=== PATIENT | female | born 1945 | race Caucasian/White ===

== ENCOUNTER 2019-04-06 09:38 | Emergency (ER) | payer BC ==
[~2019-04-06] VITALS: Ht 160 cm; Wt 59.0 kg
[2019-04-06 09:38] VITALS: BP_SYST 141
[2019-04-06] MEDS ORDERED: NACL 0.9% 1,000 ML IV ONE (09:56)
[2019-04-06 10:35] LABS: ANION GAP 9 (5-15); CALCIUM 9.6 mg/dL (8.4-11.0); CHLORIDE 103 mmol/L (98-107); CREATININE 0.98 mg/dL (0.55-1.30); GLUCOSE 74 mg/dL (70-99); SODIUM SERUM 137 mmol/L (136-145); UREA NITROGEN, BLOOD 12 mg/dL (8-21)
[2019-04-06 10:37] LABS: BASOPHILS % (AUTO) 0.8 % (0.0-2.0); EOSINOPHILS % (AUTO) 1.1 % (0.0-4.0); HEMATOCRIT 37.2 % (36-48); HEMOGLOBIN 12.5 g/dL (12.0-16.0); LYMPHOCYTES # (AUTO) 1.1 K/uL (1.0-5.5); LYMPHOCYTES % (AUTO) 31.2 % (20.5-51.5); MEAN CORPUSCULAR HEMOGLOBIN 31 pg (27-31); MEAN CORPUSCULAR HGB CONC 34 % (32-36); MEAN CORPUSCULAR VOLUME 94 fL (79.0-98.0); MONOCYTES # (AUTO) 0.2 K/uL (0.0-1.0); MONOCYTES % (AUTO) 7.1 % (1.7-9.3); NEUTROPHILS # (AUTO) 2.1 K/uL (1.8-7.7); NEUTROPHILS % (AUTO) 59.8 % (40.0-70.0); PLATELET COUNT (AUTO) 133 K/uL (130-430); RED BLOOD CELL COUNT(AUTO) 3.98 MIL/uL (4.2-6.2); RED CELL DISTRIBUTION WIDTH 12.9 % (9.0-15.0); WHITE BLOOD COUNT (AUTO) 3.5 K/uL (4.8-10.8)
[2019-04-06 10:39] LABS: ALANINE AMINOTRANSFERASE 18 U/L (12-78); ALBUMIN 3.8 g/dL (3.4-4.8); ASPARTATE AMINOTRANSFERASE 34 U/L (10-37); LIPASE 505 U/L (73-393); TOTAL BILIRUBIN 0.9 mg/dL (0.0-1.0)
[2019-04-06 10:53] LABS: BILIRUBIN,URINE NEGATIVE (NEGATIVE); BLOOD, URINE 2+ (NEGATIVE); CLARITY/URINE SL HAZY (CLEAR); COLOR,URINE YELLOW (YELLOW); GLUCOSE,URINE NEGATIVE (NEGATIVE); KETONES,URINE 1+ (NEGATIVE); LEUKOCYTE ESTERASE ,URINE 1+ (NEGATIVE); NITRITE, URINE NEGATIVE (NEGATIVE); PH,URINE 5.5 (5.0-8.0); PROTEIN URINE NEGATIVE (NEGATIVE); UROBILINOGEN,URINE 0.2 (0.2-1.0)
[2019-04-06 11:20] LABS: BACTERIA,URINE FEW /HPF (None Seen); MUCUS,URINE None Seen /LPF (None Seen); RBC,URINE 0-3 /HPF (0-3)
[2019-04-06 14:45] VITALS: BP_SYST 115
== END 2019-04-06 14:45 | disposition home or self-care (01) ==
LOC: SED 09:38
DX: K52.9 Noninfective gastroenteritis and colitis, unspecified (principal); E11.9 Type 2 diabetes mellitus without complications; Z88.0 Allergy status to penicillin; Z88.6 Allergy status to analgesic agent; Z86.79 Personal history of other diseases of the circulatory system; Z90.49 Acquired absence of other specified parts of digestive tract; Z90.89 Acquired absence of other organs
CPT/HCPCS: 36415; 80053; 81000; 83690; 85025; 87086; 93005; 96360; 99284; J7030

== ENCOUNTER 2019-12-01 15:10 | Emergency (ER) | payer BC ==
[~2019-12-01] VITALS: Ht 160 cm; Wt 47.6 kg
[2019-12-01] MEDS ORDERED: NACL 0.9% 1,000 ML IV ONE (15:22)
--- NOTE | 2019-12-01 15:30 | NUR ---
DR SALDIVAR TO ASSESS. PT CALM, ALERT AND COOPERATIVE
--- NOTE | 2019-12-01 16:00 | NUR ---
BIB EMT FROM HOME AFTER C/O DEHYDRATION AND UTI. SHE IS CALM, ALERT, RESP UNLABORED, SKIN WARM AND DRY. COMMUNICATES CLEARLY IN FULL COMPLETE SENTENCES. DENIES CP/SOB SHE DENIES ANY DYSUREA. SHE BELIEVS SHE IS DEHYDRATED HAS UTI.
[2019-12-01 16:09] VITALS: BP_SYST 126
--- NOTE | 2019-12-01 16:09 | NUR ---
PLACED IN ROOM.
[2019-12-01] MEDS ORDERED: fentaNYL CITRATE/PF 100 MCG/2 ML AMP IVP ONE (16:15)
[2019-12-01] MEDS ORDERED: ONDANSETRON HCL 4 MG/2 ML VIAL IVP ONE (16:15)
[2019-12-01 16:31] LABS: EOSINOPHILS % (AUTO) 0.1 % (0.0-4.0); HEMATOCRIT 33.1 % (36-48); HEMOGLOBIN 11.3 g/dL (12.0-16.0); LYMPHOCYTES # (AUTO) 0.4 K/uL (1.0-5.5); LYMPHOCYTES % (AUTO) 7.9 % (20.5-51.5); MEAN CORPUSCULAR HEMOGLOBIN 34 pg (27-31); MEAN CORPUSCULAR HGB CONC 34 % (32-36); MEAN CORPUSCULAR VOLUME 98 fL (79.0-98.0); MONOCYTES # (AUTO) 0.3 K/uL (0.0-1.0); MONOCYTES % (AUTO) 6.8 % (1.7-9.3); NEUTROPHILS # (AUTO) 4.2 K/uL (1.8-7.7); NEUTROPHILS % (AUTO) 84.2 % (40.0-70.0); PLATELET COUNT (AUTO) 164 K/uL (130-430); RED BLOOD CELL COUNT(AUTO) 3.37 MIL/uL (4.2-6.2); RED CELL DISTRIBUTION WIDTH 12.5 % (9.0-15.0)
[2019-12-01 16:46] LABS: PROTHROMBIN TIME 10.4 SECS (9.5-12.5)
[2019-12-01 16:55] LABS: ANION GAP 5 (5-15); CHLORIDE 98 mmol/L (98-107); GLUCOSE 87 mg/dL (70-99); POTASSIUM 3.9 mmol/L (3.5-5.1); SODIUM SERUM 132 mmol/L (136-145); UREA NITROGEN, BLOOD 8 mg/dL (8-21)
[2019-12-01 17:00] LABS: ALANINE AMINOTRANSFERASE 36 U/L (12-78); ALBUMIN 3.3 g/dL (3.4-4.8); ASPARTATE AMINOTRANSFERASE 40 U/L (10-37); LIPASE 477 U/L (73-393)
[2019-12-01 17:55] LABS: BILIRUBIN,URINE NEGATIVE (NEGATIVE); BLOOD, URINE NEGATIVE (NEGATIVE); CLARITY/URINE CLEAR (CLEAR); COLOR,URINE YELLOW (YELLOW); GLUCOSE,URINE NEGATIVE (NEGATIVE); KETONES,URINE 1+ (NEGATIVE); LEUKOCYTE ESTERASE ,URINE NEGATIVE (NEGATIVE); NITRITE, URINE NEGATIVE (NEGATIVE); PH,URINE 7.5 (5.0-8.0); PROTEIN URINE NEGATIVE (NEGATIVE); UROBILINOGEN,URINE 0.2 (0.2-1.0)
--- NOTE | 2019-12-01 18:45 | NUR ---
NO CHANGE IN MENTATION, SKIN WARM AND DRY. COMMUNICATES CLEARLY IN FULL COMPLETE SENTENCES. AWAITING INFLUENZA TEST
--- NOTE | 2019-12-01 21:39 | NUR ---
Patient given written and verbal discharge instructions and verbalizes understanding. ER MD discussed with patient the results and treatment provided. Patient in stable condition. ID arm band removed. IV catheter removed intact and dressing applied, no active bleeding. Rx of PYRIDIUM AND TYLENOL given. Patient educated on pain management and to follow up with PMD. Pain Scale 0/10. Opportunity for questions provided and answered. Medication side effect fact sheet provided.
[2019-12-01 21:40] VITALS: BP_SYST 122
== END 2019-12-01 21:39 | disposition home or self-care (01) ==
LOC: SED 15:10
DX: R30.0 Dysuria (principal); E11.9 Type 2 diabetes mellitus without complications; Z88.0 Allergy status to penicillin; Z88.5 Allergy status to narcotic agent
CPT/HCPCS: 36415; 71045; 80053; 81003; 82550; 83605; 83690; 83880; 84484; 85025; 85610; 85730; 86710; 87040; 93005; 99285; J7030

== ENCOUNTER 2020-05-20 01:28 | Observation (INO) | payer BC ==
[~2020-05-20] VITALS: Ht 167.6 cm; Wt 47.7 kg
[2020-05-20] VITALS (8 sets, daily range): BP systolic 104–133
[2020-05-20] MEDS ORDERED: NACL 0.9% 1,000 ML IV ONE ×2 (02:09→04:31)
[2020-05-20] MEDS ORDERED: ONDANSETRON HCL 4 MG/2 ML VIAL IVP ONE (02:15)
[2020-05-20] MEDS ORDERED: LISI40TA4 PO (02:24)
[2020-05-20] MEDS ORDERED: CYAN250014 PO (02:25)
[2020-05-20 02:50] LABS: BASOPHILS % (AUTO) 0.8 % (0.0-2.0); EOSINOPHILS % (AUTO) 0.9 % (0.0-4.0); HEMATOCRIT 28.9 % (36-48); HEMOGLOBIN 9.9 g/dL (12.0-16.0); LYMPHOCYTES # (AUTO) 0.8 K/uL (1.0-5.5); LYMPHOCYTES % (AUTO) 24.3 % (20.5-51.5); MEAN CORPUSCULAR HEMOGLOBIN 33 pg (27-31); MEAN CORPUSCULAR HGB CONC 34 % (32-36); MEAN CORPUSCULAR VOLUME 96 fL (79.0-98.0); MONOCYTES # (AUTO) 0.4 K/uL (0.0-1.0); MONOCYTES % (AUTO) 12.4 % (1.7-9.3); NEUTROPHILS # (AUTO) 2.1 K/uL (1.8-7.7); NEUTROPHILS % (AUTO) 61.6 % (40.0-70.0); PLATELET COUNT (AUTO) 220 K/uL (130-430); RED BLOOD CELL COUNT(AUTO) 3.03 MIL/uL (4.2-6.2); RED CELL DISTRIBUTION WIDTH 13.6 % (9.0-15.0); WHITE BLOOD COUNT (AUTO) 3.4 K/uL (4.8-10.8)
[2020-05-20 03:12] LABS: ANION GAP 3 (5-15); CALCIUM 8.3 mg/dL (8.4-11.0); CHLORIDE 91 mmol/L (98-107); CREATININE 0.61 mg/dL (0.55-1.30); GLUCOSE 88 mg/dL (70-99); POTASSIUM 4.7 mmol/L (3.5-5.1); SODIUM SERUM 123 mmol/L (136-145); UREA NITROGEN, BLOOD 15 mg/dL (8-21)
[2020-05-20 03:17] LABS: ALANINE AMINOTRANSFERASE 27 U/L (12-78); ALBUMIN 3.2 g/dL (3.4-4.8); ASPARTATE AMINOTRANSFERASE 26 U/L (10-37); LIPASE 988 U/L (73-393); TOTAL BILIRUBIN 0.4 mg/dL (0.0-1.0)
[2020-05-20 03:33] LABS: BILIRUBIN,URINE NEGATIVE (NEGATIVE); BLOOD, URINE NEGATIVE (NEGATIVE); CLARITY/URINE CLEAR (CLEAR); GLUCOSE,URINE NEGATIVE (NEGATIVE); KETONES,URINE NEGATIVE (NEGATIVE); LEUKOCYTE ESTERASE ,URINE NEGATIVE (NEGATIVE); NITRITE, URINE NEGATIVE (NEGATIVE); PH,URINE 7.5 (5.0-8.0); PROTEIN URINE NEGATIVE (NEGATIVE); UROBILINOGEN,URINE 0.2 (0.2-1.0)
[2020-05-20 03:35] LABS: COLOR,URINE STRAW (YELLOW)
[2020-05-20] MEDS ORDERED: ACETAMINOPHEN 325 MG TABLET PO PRN (07:00)
[2020-05-20] MEDS ORDERED: ONDANSETRON HCL 4 MG/2 ML VIAL IVP PRN (07:00)
[2020-05-20] MEDS: NACL 0.9% 1,000 ML IV SCH ×2 (08:55→16:25)
[2020-05-20] MEDS: lisinopriL 20 MG TABLET PO SCH (08:55)
[2020-05-20] MEDS ORDERED: DIATR MEGLU/DIATRIZ SOD 30 ML SOLUTION PO ONE ×2 (09:04→11:30)
[2020-05-20 10:43] LABS: BASOPHILS % (AUTO) 0.9 % (0.0-2.0); EOSINOPHILS % (AUTO) 0.7 % (0.0-4.0); HEMATOCRIT 28.3 % (36-48); LYMPHOCYTES % (AUTO) 22.3 % (20.5-51.5); MEAN CORPUSCULAR HEMOGLOBIN 33 pg (27-31); MEAN CORPUSCULAR HGB CONC 35 % (32-36); MEAN CORPUSCULAR VOLUME 95 fL (79.0-98.0); MONOCYTES # (AUTO) 0.5 K/uL (0.0-1.0); MONOCYTES % (AUTO) 11.3 % (1.7-9.3); NEUTROPHILS # (AUTO) 2.8 K/uL (1.8-7.7); NEUTROPHILS % (AUTO) 64.8 % (40.0-70.0); PLATELET COUNT (AUTO) 225 K/uL (130-430); RED BLOOD CELL COUNT(AUTO) 2.99 MIL/uL (4.2-6.2); RED CELL DISTRIBUTION WIDTH 13.5 % (9.0-15.0); WHITE BLOOD COUNT (AUTO) 4.3 K/uL (4.8-10.8)
[2020-05-20 10:56] LABS: TOTAL IRON BIND. CAPACITY 219 ug/dL (250-450)
[2020-05-20 10:57] LABS: CHOLESTEROL 148 mg/dL (<200); HDL CHOLESTEROL 95 mg/dL (>55); LDL CHOLESTEROL 43 mg/dL (<100); TRIGLYCERIDES 35 mg/dL (30-150)
[2020-05-20 11:03] LABS: ANION GAP 3 (5-15); CALCIUM 8.1 mg/dL (8.4-11.0); CHLORIDE 94 mmol/L (98-107); CREATININE 0.63 mg/dL (0.55-1.30); GLUCOSE 75 mg/dL (70-99); SODIUM SERUM 126 mmol/L (136-145); UREA NITROGEN, BLOOD 12 mg/dL (8-21)
[2020-05-20 11:04] LABS: ALANINE AMINOTRANSFERASE 25 U/L (12-78); ASPARTATE AMINOTRANSFERASE 23 U/L (10-37); TOTAL BILIRUBIN 0.6 mg/dL (0.0-1.0)
[2020-05-20 11:12] LABS: LIPASE 882 U/L (73-393)
[2020-05-21 01:13] VITALS: BP_SYST 116
[2020-05-21] MEDS: NACL 0.9% 1,000 ML IV SCH ×2 (02:58→12:55)
[2020-05-21 07:14] LABS: BASOPHILS % (AUTO) 1.2 % (0.0-2.0); EOSINOPHILS % (AUTO) 1.4 % (0.0-4.0); HEMATOCRIT 28.3 % (36-48); LYMPHOCYTES # (AUTO) 0.8 K/uL (1.0-5.5); LYMPHOCYTES % (AUTO) 29.2 % (20.5-51.5); MEAN CORPUSCULAR HEMOGLOBIN 34 pg (27-31); MEAN CORPUSCULAR HGB CONC 35 % (32-36); MEAN CORPUSCULAR VOLUME 95 fL (79.0-98.0); MONOCYTES # (AUTO) 0.3 K/uL (0.0-1.0); MONOCYTES % (AUTO) 11.1 % (1.7-9.3); NEUTROPHILS # (AUTO) 1.7 K/uL (1.8-7.7); NEUTROPHILS % (AUTO) 57.1 % (40.0-70.0); PLATELET COUNT (AUTO) 234 K/uL (130-430); RED BLOOD CELL COUNT(AUTO) 2.97 MIL/uL (4.2-6.2); RED CELL DISTRIBUTION WIDTH 13.7 % (9.0-15.0); WHITE BLOOD COUNT (AUTO) 2.9 K/uL (4.8-10.8)
[2020-05-21 07:26] LABS: ALANINE AMINOTRANSFERASE 25 U/L (12-78); ANION GAP 4 (5-15); ASPARTATE AMINOTRANSFERASE 25 U/L (10-37); CALCIUM 8.3 mg/dL (8.4-11.0); CHLORIDE 94 mmol/L (98-107); CREATININE 0.64 mg/dL (0.55-1.30); GLUCOSE 60 mg/dL (70-99); POTASSIUM 4.3 mmol/L (3.5-5.1); SODIUM SERUM 126 mmol/L (136-145); TOTAL BILIRUBIN 0.7 mg/dL (0.0-1.0); UREA NITROGEN, BLOOD 8 mg/dL (8-21)
[2020-05-21 07:53] VITALS: BP_SYST 117
[2020-05-21] MEDS: lisinopriL 20 MG TABLET PO SCH (08:30)
[2020-05-21 13:02] VITALS: BP_SYST 145
[2020-05-21 16:13] VITALS: BP_SYST 117
[2020-05-21 18:25] VITALS: BP_SYST 118
== END 2020-05-21 19:20 | disposition home or self-care (01) ==
LOC: SED 01:28 → SMU 04:26 → INTOOBSV 04:26 → SMU 05:06
PROVIDERS: ADMIT Internal Medicine Hospice and Palliative Medicine; ATTEND Internal Medicine Hospice and Palliative Medicine
DX: K85.90 Acute pancreatitis without necrosis or infection, unspecified (principal); K86.2 Cyst of pancreas; E87.1 Hypo-osmolality and hyponatremia; E46 Unspecified protein-calorie malnutrition; D72.819 Decreased white blood cell count, unspecified; D64.9 Anemia, unspecified; I10 Essential (primary) hypertension; E11.9 Type 2 diabetes mellitus without complications; R74.8 Abnormal levels of other serum enzymes; Z88.0 Allergy status to penicillin; Z86.011 Personal history of benign neoplasm of the brain; Z79.899 Other long term (current) drug therapy; Z90.49 Acquired absence of other specified parts of digestive tract
CPT/HCPCS: 36415; 71045; 76700-TC; 80053; 80061; 81003; 83540-TC; 83550-TC; 83690-TC; 83880; 84302-TC; 84484; 85025; 93005; 94760; 96360; 96361; 99285; G0378; J7030; Q9964; Q9967

== ENCOUNTER 2020-05-24 19:49 | Emergency (ER) | payer BC ==
[~2020-05-24] VITALS: Ht 160 cm; Wt 47.6 kg
[~2020-05-24 19:49] MED LIST: CYAN250014 PO; LISI40TA4 PO
[2020-05-24 19:52] VITALS: BP_SYST 121
[2020-05-24] MEDS ORDERED: ONDANSETRON HCL 4 MG/2 ML VIAL IVP ONE (20:15)
[2020-05-24 20:31] LABS: MONOCYTES # (AUTO) 0.4 K/uL (0.0-1.0); RED BLOOD CELL COUNT(AUTO) 3.01 MIL/uL (4.2-6.2)
[2020-05-24 20:36] LABS: BASOPHILS % (AUTO) 1.1 % (0.0-2.0); EOSINOPHILS % (AUTO) 1.2 % (0.0-4.0); HEMATOCRIT 28.5 % (36-48); HEMOGLOBIN 9.9 g/dL (12.0-16.0); LYMPHOCYTES # (AUTO) 0.9 K/uL (1.0-5.5); LYMPHOCYTES % (AUTO) 29.1 % (20.5-51.5); MEAN CORPUSCULAR HEMOGLOBIN 33 pg (27-31); MEAN CORPUSCULAR HGB CONC 35 % (32-36); MEAN CORPUSCULAR VOLUME 95 fL (79.0-98.0); MONOCYTES % (AUTO) 12.1 % (1.7-9.3); NEUTROPHILS # (AUTO) 1.8 K/uL (1.8-7.7); NEUTROPHILS % (AUTO) 56.5 % (40.0-70.0); PLATELET COUNT (AUTO) 219 K/uL (130-430); RED CELL DISTRIBUTION WIDTH 13.5 % (9.0-15.0); WHITE BLOOD COUNT (AUTO) 3.2 K/uL (4.8-10.8)
[2020-05-24 20:54] LABS: ANION GAP 3 (5-15); CALCIUM 8.4 mg/dL (8.4-11.0); CHLORIDE 92 mmol/L (98-107); CREATININE 0.68 mg/dL (0.55-1.30); GLUCOSE 86 mg/dL (70-99); POTASSIUM 4.7 mmol/L (3.5-5.1); SODIUM SERUM 124 mmol/L (136-145); UREA NITROGEN, BLOOD 14 mg/dL (8-21)
[2020-05-24 21:00] LABS: ALANINE AMINOTRANSFERASE 21 U/L (12-78); ALBUMIN 3.5 g/dL (3.4-4.8); ASPARTATE AMINOTRANSFERASE 20 U/L (10-37); LIPASE 1022 U/L (73-393); TOTAL BILIRUBIN 0.4 mg/dL (0.0-1.0)
[2020-05-24 21:12] LABS: BILIRUBIN,URINE NEGATIVE (NEGATIVE); BLOOD, URINE NEGATIVE (NEGATIVE); CLARITY/URINE CLEAR (CLEAR); COLOR,URINE YELLOW (YELLOW); GLUCOSE,URINE NEGATIVE (NEGATIVE); KETONES,URINE NEGATIVE (NEGATIVE); LEUKOCYTE ESTERASE ,URINE NEGATIVE (NEGATIVE); NITRITE, URINE NEGATIVE (NEGATIVE); PH,URINE 6.5 (5.0-8.0); PROTEIN URINE NEGATIVE (NEGATIVE); UROBILINOGEN,URINE 0.2 (0.2-1.0)
[2020-05-24 22:36] VITALS: BP_SYST 121
== END 2020-05-24 22:36 | disposition home or self-care (01) ==
LOC: SED 19:49
DX: R11.0 Nausea (principal)
CPT/HCPCS: 36415; 80053; 81003; 83690; 85025; 93005; 96374; 99284; J2405

== ENCOUNTER 2020-05-31 09:39 | Emergency (ER) | payer BC ==
[~2020-05-31] VITALS: Ht 165.1 cm; Wt 74.8 kg
[2020-05-31 09:39] VITALS: BP_SYST 135
[2020-05-31] MEDS ORDERED: NACL 0.9% 1,000 ML IV ONE (09:46)
[2020-05-31 10:24] LABS: BASOPHILS % (AUTO) 0.9 % (0.0-2.0); EOSINOPHILS # (AUTO) 0.1 K/uL (0.0-0.4); EOSINOPHILS % (AUTO) 2.3 % (0.0-4.0); HEMATOCRIT 29.7 % (36-48); HEMOGLOBIN 10.3 g/dL (12.0-16.0); LYMPHOCYTES # (AUTO) 1.3 K/uL (1.0-5.5); LYMPHOCYTES % (AUTO) 31.9 % (20.5-51.5); MEAN CORPUSCULAR HEMOGLOBIN 33 pg (27-31); MEAN CORPUSCULAR HGB CONC 35 % (32-36); MEAN CORPUSCULAR VOLUME 95 fL (79.0-98.0); MONOCYTES # (AUTO) 0.4 K/uL (0.0-1.0); MONOCYTES % (AUTO) 9.4 % (1.7-9.3); NEUTROPHILS # (AUTO) 2.3 K/uL (1.8-7.7); NEUTROPHILS % (AUTO) 55.5 % (40.0-70.0); PLATELET COUNT (AUTO) 241 K/uL (130-430); RED BLOOD CELL COUNT(AUTO) 3.13 MIL/uL (4.2-6.2); RED CELL DISTRIBUTION WIDTH 13.3 % (9.0-15.0); WHITE BLOOD COUNT (AUTO) 4.1 K/uL (4.8-10.8)
[2020-05-31 10:42] LABS: ANION GAP 5 (5-15); CALCIUM 9.1 mg/dL (8.4-11.0); CHLORIDE 88 mmol/L (98-107); CREATININE 0.84 mg/dL (0.55-1.30); GLUCOSE 77 mg/dL (70-99); POTASSIUM 4.2 mmol/L (3.5-5.1); SODIUM SERUM 123 mmol/L (136-145); UREA NITROGEN, BLOOD 12 mg/dL (8-21)
[2020-05-31 10:47] LABS: ALANINE AMINOTRANSFERASE 23 U/L (12-78); ALBUMIN 3.8 g/dL (3.4-4.8); ASPARTATE AMINOTRANSFERASE 22 U/L (10-37); TOTAL BILIRUBIN 0.6 mg/dL (0.0-1.0)
[2020-05-31 11:26] VITALS: BP_SYST 126
== END 2020-05-31 11:25 | disposition home or self-care (01) ==
LOC: SED 09:39
DX: K59.00 Constipation, unspecified (principal); R10.32 Left lower quadrant pain; E11.9 Type 2 diabetes mellitus without complications; Z88.0 Allergy status to penicillin; Z88.6 Allergy status to analgesic agent; Z88.1 Allergy status to other antibiotic agents
CPT/HCPCS: 36415; 80053; 85025; 87040-TC; 99284

== ENCOUNTER 2020-06-05 14:35 | Emergency (ER) | payer BC ==
[~2020-06-05] VITALS: Ht 160 cm; Wt 44.0 kg
[2020-06-05] MEDS ORDERED: NACL 0.9% 1,000 ML IV ONE (14:54)
[2020-06-05 15:00] VITALS: BP_SYST 124
[2020-06-05] MEDS ORDERED: fentaNYL CITRATE/PF 100 MCG/2 ML AMP IVP ONE (15:00)
[2020-06-05] MEDS ORDERED: ONDANSETRON HCL 4 MG/2 ML VIAL IVP ONE (15:00)
--- NOTE | 2020-06-05 15:00 | NUR ---
Patient to ER bed 5 to gown for evaluation. Side rails up. Report given to MAYRA Marie.
--- NOTE | 2020-06-05 15:05 | NUR ---
Pt walked in to ER with c/o abdominal pain x3 days. Denies n/v, or fever. V/S stable pt is afebrile. Currently resting in bed, will continue to monitor.
--- NOTE | 2020-06-05 15:10 | NUR ---
Lab at bedside for blood draw.
[2020-06-05 15:38] LABS: BASOPHILS % (AUTO) 0.9 % (0.0-2.0); EOSINOPHILS % (AUTO) 1.2 % (0.0-4.0); HEMATOCRIT 28.2 % (36-48); HEMOGLOBIN 9.8 g/dL (12.0-16.0); LYMPHOCYTES # (AUTO) 0.6 K/uL (1.0-5.5); LYMPHOCYTES % (AUTO) 16.4 % (20.5-51.5); MEAN CORPUSCULAR HEMOGLOBIN 33 pg (27-31); MEAN CORPUSCULAR HGB CONC 35 % (32-36); MEAN CORPUSCULAR VOLUME 96 fL (79.0-98.0); MONOCYTES # (AUTO) 0.4 K/uL (0.0-1.0); MONOCYTES % (AUTO) 11.1 % (1.7-9.3); NEUTROPHILS # (AUTO) 2.4 K/uL (1.8-7.7); NEUTROPHILS % (AUTO) 70.4 % (40.0-70.0); PLATELET COUNT (AUTO) 239 K/uL (130-430); RED BLOOD CELL COUNT(AUTO) 2.95 MIL/uL (4.2-6.2); RED CELL DISTRIBUTION WIDTH 13.4 % (9.0-15.0); WHITE BLOOD COUNT (AUTO) 3.4 K/uL (4.8-10.8)
[2020-06-05 15:56] LABS: ANION GAP 8 (5-15); CHLORIDE 92 mmol/L (98-107); GLUCOSE 115 mg/dL (70-99); POTASSIUM 3.8 mmol/L (3.5-5.1); SODIUM SERUM 128 mmol/L (136-145); UREA NITROGEN, BLOOD 11 mg/dL (8-21)
[2020-06-05 16:01] LABS: ALANINE AMINOTRANSFERASE 19 U/L (12-78); ALBUMIN 3.4 g/dL (3.4-4.8); ASPARTATE AMINOTRANSFERASE 16 U/L (10-37); LIPASE 728 U/L (73-393); TOTAL BILIRUBIN 0.3 mg/dL (0.0-1.0)
--- NOTE | 2020-06-05 16:05 | NUR ---
ER at bedside examining patient.
--- NOTE | 2020-06-05 16:10 | NUR ---
# 20 gauge angiocath placed to RAC. Use of asceptic technique. Opsite placed over site. Blood return noted. Blood for lab drawn from site. Flushed with 10 cc of normal saline. No evidence of infiltration noted. Patient tolerated well.
--- NOTE | 2020-06-05 16:15 | NUR ---
1L NS bolus infusing as per MD order.
--- NOTE | 2020-06-05 17:35 | NUR ---
Patient given written and verbal discharge instructions and verbalizes understanding. ER MD discussed with patient the results and treatment provided. Patient in stable condition. ID arm band removed. IV catheter removed intact and dressing applied, no active bleeding. Rx of Miralax given. Patient educated on pain management and to follow up with PMD. Pain Scale 0. Opportunity for questions provided and answered. Medication side effect fact sheet provided.
[2020-06-05 17:39] VITALS: BP_SYST 124
== END 2020-06-05 17:35 | disposition home or self-care (01) ==
LOC: SED 14:35
DX: G89.29 Other chronic pain (principal); R10.32 Left lower quadrant pain; E11.9 Type 2 diabetes mellitus without complications; Z86.73 Personal history of transient ischemic attack (TIA), and cerebral infarction without residual deficits; Z88.6 Allergy status to analgesic agent; Z88.1 Allergy status to other antibiotic agents; Z88.0 Allergy status to penicillin
CPT/HCPCS: 36415; 80053; 83690; 85025; 96361; 96374; 96375; 99284; J2405; J3010; J7030

== ENCOUNTER 2020-06-08 13:07 | Emergency (ER) | payer BC ==
[~2020-06-08] VITALS: Ht 160 cm; Wt 45.4 kg
[2020-06-08 13:08] VITALS: BP_SYST 109
--- NOTE | 2020-06-08 13:08 | NUR ---
Patient to ER bed 04 to gown for evaluation. Side rails up. Report given to MAYRA TREVIZO.
--- NOTE | 2020-06-08 13:10 | NUR ---
PT PRESENTED RO ER C/O NAUSEA. PATIENT BIB BLS, A&OX4, NAUSEA, DENIES V/D, SKIN PINK & WARM, SPEAKING IN FULL SENTENCES. PATIENT STATES SHE IS NAUSEATED AFTER TAKING THE LAST PILL OF CIPRO. PATIENT SEEN AT , GIVEN ABX FOR DIARRHEA.
--- NOTE | 2020-06-08 13:12 | NUR ---
ER at bedside examining patient.
--- NOTE | 2020-06-08 13:12 | NUR ---
Marcin degroot in [place] - 06/08/20 at 1447 by SDEDTD Provider Calling: Reason for Call: Orders? Comments: Does ER need to call back Provider?
[2020-06-08] MEDS ORDERED: ONDANSETRON 4 MG ODT TAB PO ONE (13:30)
[2020-06-08 14:28] LABS: BASOPHILS # (AUTO) 0.1 K/uL (0.0-0.2); BASOPHILS % (AUTO) 1.5 % (0.0-2.0); EOSINOPHILS # (AUTO) 0.1 K/uL (0.0-0.4); EOSINOPHILS % (AUTO) 1.6 % (0.0-4.0); HEMATOCRIT 29.6 % (36-48); HEMOGLOBIN 10.2 g/dL (12.0-16.0); LYMPHOCYTES # (AUTO) 0.5 K/uL (1.0-5.5); LYMPHOCYTES % (AUTO) 13.4 % (20.5-51.5); MEAN CORPUSCULAR HEMOGLOBIN 33 pg (27-31); MEAN CORPUSCULAR HGB CONC 35 % (32-36); MEAN CORPUSCULAR VOLUME 96 fL (79.0-98.0); MONOCYTES # (AUTO) 0.3 K/uL (0.0-1.0); MONOCYTES % (AUTO) 8.7 % (1.7-9.3); NEUTROPHILS # (AUTO) 2.9 K/uL (1.8-7.7); NEUTROPHILS % (AUTO) 74.8 % (40.0-70.0); PLATELET COUNT (AUTO) 241 K/uL (130-430); RED BLOOD CELL COUNT(AUTO) 3.08 MIL/uL (4.2-6.2); RED CELL DISTRIBUTION WIDTH 13.1 % (9.0-15.0); WHITE BLOOD COUNT (AUTO) 3.9 K/uL (4.8-10.8)
[2020-06-08 14:45] LABS: ANION GAP 6 (5-15); CALCIUM 8.6 mg/dL (8.4-11.0); CHLORIDE 97 mmol/L (98-107); CREATININE 0.86 mg/dL (0.55-1.30); GLUCOSE 72 mg/dL (70-99); POTASSIUM 4.1 mmol/L (3.5-5.1); SODIUM SERUM 133 mmol/L (136-145); UREA NITROGEN, BLOOD 15 mg/dL (8-21)
[2020-06-08 14:50] LABS: ALANINE AMINOTRANSFERASE 20 U/L (12-78); ALBUMIN 3.4 g/dL (3.4-4.8); ASPARTATE AMINOTRANSFERASE 18 U/L (10-37); TOTAL BILIRUBIN 0.5 mg/dL (0.0-1.0)
[2020-06-08 15:40] VITALS: BP_SYST 110
--- NOTE | 2020-06-08 15:40 | NUR ---
Patient given written and verbal discharge instructions and verbalizes understanding. ER MD discussed with patient the results and treatment provided. Patient in stable condition. ID arm band removed. Rx of ZOFRAN given. Patient educated on pain management and to follow up with PMD. Pain Scale 0/10. Opportunity for questions provided and answered. Medication side effect fact sheet provided.
== END 2020-06-08 15:40 | disposition home or self-care (01) ==
LOC: SED 13:07
DX: T36.8X5A Adverse effect of other systemic antibiotics, initial encounter (principal); R11.2 Nausea with vomiting, unspecified; E87.3 Alkalosis; E11.9 Type 2 diabetes mellitus without complications; Z90.49 Acquired absence of other specified parts of digestive tract; Z88.0 Allergy status to penicillin; Z88.6 Allergy status to analgesic agent; Z88.1 Allergy status to other antibiotic agents; Y92.89 Other specified places as the place of occurrence of the external cause
CPT/HCPCS: 36415; 80053; 85025; 99283; Q0162

== ENCOUNTER 2020-06-10 12:07 | Emergency (ER) | payer BC ==
[~2020-06-10] VITALS: Ht 160 cm; Wt 43.1 kg
[2020-06-10 12:07] VITALS: BP_SYST 128
[2020-06-10] MEDS ORDERED: PROCHLORPERAZINE EDISYLATE 10 MG/2 ML VIAL IM ONE (13:00)
[2020-06-10 14:00] LABS: EOSINOPHILS # (AUTO) 0.1 K/uL (0.0-0.4); EOSINOPHILS % (AUTO) 1.4 % (0.0-4.0); HEMATOCRIT 29.9 % (36-48); HEMOGLOBIN 10.3 g/dL (12.0-16.0); LYMPHOCYTES # (AUTO) 0.8 K/uL (1.0-5.5); LYMPHOCYTES % (AUTO) 21.6 % (20.5-51.5); MEAN CORPUSCULAR HEMOGLOBIN 33 pg (27-31); MEAN CORPUSCULAR HGB CONC 35 % (32-36); MEAN CORPUSCULAR VOLUME 96 fL (79.0-98.0); MONOCYTES # (AUTO) 0.3 K/uL (0.0-1.0); MONOCYTES % (AUTO) 6.6 % (1.7-9.3); NEUTROPHILS # (AUTO) 2.7 K/uL (1.8-7.7); NEUTROPHILS % (AUTO) 69.4 % (40.0-70.0); PLATELET COUNT (AUTO) 235 K/uL (130-430); RED BLOOD CELL COUNT(AUTO) 3.11 MIL/uL (4.2-6.2); RED CELL DISTRIBUTION WIDTH 12.9 % (9.0-15.0); WHITE BLOOD COUNT (AUTO) 3.8 K/uL (4.8-10.8)
[2020-06-10 14:49] LABS: ANION GAP 5 (5-15); CALCIUM 8.4 mg/dL (8.4-11.0); CHLORIDE 96 mmol/L (98-107); GLUCOSE 70 mg/dL (70-99); POTASSIUM 3.9 mmol/L (3.5-5.1); SODIUM SERUM 129 mmol/L (136-145); UREA NITROGEN, BLOOD 11 mg/dL (8-21)
[2020-06-10 14:55] LABS: ALANINE AMINOTRANSFERASE 15 U/L (12-78); ALBUMIN 3.4 g/dL (3.4-4.8); ASPARTATE AMINOTRANSFERASE 16 U/L (10-37); LIPASE 250 U/L (73-393); TOTAL BILIRUBIN 0.5 mg/dL (0.0-1.0)
[2020-06-10 16:14] VITALS: BP_SYST 128
== END 2020-06-10 16:15 | disposition home or self-care (01) ==
LOC: SED 12:07
DX: K29.00 Acute gastritis without bleeding (principal); E11.9 Type 2 diabetes mellitus without complications; Z88.0 Allergy status to penicillin; Z88.6 Allergy status to analgesic agent; Z88.1 Allergy status to other antibiotic agents
CPT/HCPCS: 36415; 83690; 80053; 85025; 96372; 99283; J0780

== ENCOUNTER 2020-06-24 06:53 | Day surgery (SDC) | payer BC, SELFPAY ==
[~2020-06-24] VITALS: Ht 160 cm; Wt 44.0 kg
[2020-06-24] MEDS ORDERED: SIMETHICONE 40 MG/0.6 ML ML ONE (07:59)
[2020-06-24] MEDS ORDERED: BENZOCAINE 20% 0.5mL UD SPRAY MM ONE (08:00)
[2020-06-24] MEDS: MIDAZOLAM HCL 5 MG/5 ML VIAL ONE ×3 (10:19→10:24)
[2020-06-24] MEDS: fentaNYL CITRATE/PF 100 MCG/2 ML AMP ONE ×2 (10:19→10:22)
[2020-06-24 12:01] VITALS: BP_SYST 116
== END 2020-06-24 12:04 | disposition home or self-care (01) ==
LOC: SDS 06:53 → SMU 06:57 → SDS 12:04
PROVIDERS: ATTEND Internal Medicine
DX: K85.00 Idiopathic acute pancreatitis without necrosis or infection (principal); K29.70 Gastritis, unspecified, without bleeding; K44.9 Diaphragmatic hernia without obstruction or gangrene; J45.909 Unspecified asthma, uncomplicated; D50.9 Iron deficiency anemia, unspecified; E11.9 Type 2 diabetes mellitus without complications; Z95.5 Presence of coronary angioplasty implant and graft; Z79.899 Other long term (current) drug therapy; Z20.828 Contact with and (suspected) exposure to other viral communicable diseases
CPT/HCPCS: 43239; 88305; 88312; 88313; 99152; G0378; J2250; J3010; J7030; U0003

== ENCOUNTER 2020-06-29 20:45 | Inpatient (IN) | payer BC, SELFPAY ==
[~2020-06-29] VITALS: Ht 160 cm; Wt 49.9 kg
--- NOTE | 2020-06-29 21:00 | NUR ---
Placed in room 2 . Placed on school lunch monitor, blood pressure machine and pulse oximeter. To gown for exam. Side rails up. Report given to MAYRA HERNANDEZ.
[2020-06-29 21:06] VITALS: BP_SYST 108
--- NOTE | 2020-06-29 21:11 | NUR ---
PT PRESENTS FROM HOME WITH C/O HTN: BP ON ARRIVAL 108/58. REPORTS BEING COMPLIANT WITH HTN MEDICATIONS AT HOME. HAS BEEN FEELING TIRED FOR 3 DAYS. DENIES ANY PAIN, SOB, CP. AAOX4, V/S STABLE
--- NOTE | 2020-06-29 21:13 | NUR ---
ER DR. BEATTY AT THE BEDSIDE EVALUATING PT
--- NOTE | 2020-06-29 21:20 | NUR ---
# 22 gauge angiocath placed to lEFT fOREARM. Use of asceptic technique. Opsite placed over site. Blood return noted. Blood for lab drawn from site. Flushed with 10 cc of normal saline. No evidence of infiltration noted. Patient tolerated well.
[2020-06-29] MEDS ORDERED: NACL 0.9% 1,000 ML IV ONE (21:30)
[2020-06-29 21:40] LABS: BASOPHILS # (AUTO) 0.1 K/uL (0.0-0.2); BASOPHILS % (AUTO) 0.9 % (0.0-2.0); EOSINOPHILS # (AUTO) 0.1 K/uL (0.0-0.4); HEMATOCRIT 25.5 % (36-48); HEMOGLOBIN 8.8 g/dL (12.0-16.0); LYMPHOCYTES # (AUTO) 1.5 K/uL (1.0-5.5); LYMPHOCYTES % (AUTO) 26.9 % (20.5-51.5); MEAN CORPUSCULAR HEMOGLOBIN 33 pg (27-31); MEAN CORPUSCULAR HGB CONC 34 % (32-36); MEAN CORPUSCULAR VOLUME 97 fL (79.0-98.0); MONOCYTES # (AUTO) 0.7 K/uL (0.0-1.0); MONOCYTES % (AUTO) 13.1 % (1.7-9.3); NEUTROPHILS # (AUTO) 3.3 K/uL (1.8-7.7); NEUTROPHILS % (AUTO) 58.1 % (40.0-70.0); PLATELET COUNT (AUTO) 182 K/uL (130-430); RED BLOOD CELL COUNT(AUTO) 2.62 MIL/uL (4.2-6.2); RED CELL DISTRIBUTION WIDTH 13.6 % (9.0-15.0); WHITE BLOOD COUNT (AUTO) 5.7 K/uL (4.8-10.8)
[2020-06-29 21:49] LABS: ANION GAP 4 (5-15); CALCIUM 8.4 mg/dL (8.4-11.0); CHLORIDE 93 mmol/L (98-107); CREATININE 0.68 mg/dL (0.55-1.30); GLUCOSE 85 mg/dL (70-99); POTASSIUM 5.1 mmol/L (3.5-5.1); SODIUM SERUM 125 mmol/L (136-145); UREA NITROGEN, BLOOD 26 mg/dL (8-21)
[2020-06-29 21:50] LABS: INR 0.9 (0.8-1.2); PROTHROMBIN TIME 9.4 SECS (9.5-12.5)
[2020-06-29 21:56] LABS: ALANINE AMINOTRANSFERASE 24 U/L (12-78); ASPARTATE AMINOTRANSFERASE 23 U/L (10-37); TOTAL BILIRUBIN 0.2 mg/dL (0.0-1.0)
[2020-06-29 22:13] LABS: BILIRUBIN,URINE NEGATIVE (NEGATIVE); BLOOD, URINE NEGATIVE (NEGATIVE); CLARITY/URINE CLEAR (CLEAR); COLOR,URINE YELLOW (YELLOW); GLUCOSE,URINE NEGATIVE (NEGATIVE); KETONES,URINE NEGATIVE (NEGATIVE); LEUKOCYTE ESTERASE ,URINE NEGATIVE (NEGATIVE); NITRITE, URINE NEGATIVE (NEGATIVE); PH,URINE 5.5 (5.0-8.0); PROTEIN URINE NEGATIVE (NEGATIVE); UROBILINOGEN,URINE 0.2 (0.2-1.0)
--- NOTE | 2020-06-29 22:19 | NUR ---
ALERT, CALM, DENIES CP/SOB. C/O HTN. "I DIDN'T FEEL WELL" NO SPECIFIC COMPLAINTS
[2020-06-29 22:23] LABS: LIPASE 1642 U/L (73-393)
--- NOTE | 2020-06-29 22:47 | NUR ---
DR BEATTY IN TO REASSESS
--- NOTE | 2020-06-29 23:08 | NUR ---
ADMIT ORDERS RECIEVED FOR M/S BY ZAKI
--- NOTE | 2020-06-29 23:55 | NUR ---
Patient will be admitted to care of Dr Angeles. Admitted to [facility] unit. Will go to room 114a. Belongings list completed. Complete and up to date summary report printed. SBAR report to be given at bedside with opportunity for questions.
--- NOTE | 2020-06-30 00:03 | NUR ---
Initial Note: Patient is in bed, resting. No acute distress. Even, nonlabored breathing on room air. IV site is patent and intact. Bed is locked at lowest position. Side rails up x2. Bed alarm on. Call light is with patient. Safety and fall precautions in place. Will continue with plan of care.
--- NOTE | 2020-06-30 00:03 | NUR ---
ADMIT NOTE Received pt from ER to the floor with a diagnosis of pancreatitis. Admission process initiated. patient oriented to pain management, safety and call light-teach back done.
[2020-06-30 00:12] VITALS: BP_SYST 104
[2020-06-30] MEDS ORDERED: ONDANSETRON HCL 4 MG/2 ML VIAL IVP PRN (00:15)
[2020-06-30] MEDS ORDERED: ALBUTEROL SULFATE 0.083% 2.5 MG/3 ML VIAL.NEB INH PRN (00:15)
[2020-06-30] MEDS ORDERED: ACETAMINOPHEN 325 MG TABLET PO PRN (00:15)
[2020-06-30] MEDS ORDERED: hydrALAZINE HCL 25 MG TABLET PO PRN (00:15)
--- NOTE | 2020-06-30 00:25 | NUR ---
CONSULT: CONSULT CALLED FOR DR. AMEZCUA I SPOKE WITH SANTHOSH FORBES REASON FOR CONSULT: ANEMIA, PANCREATITIS REQUESTING CONSULT: DR. CHANEY HOUSE MOTHER PHONE NUMBER: [phone]
[2020-06-30] MEDS: NACL 0.9% 1,000 ML IV SCH ×3 (00:44→16:15)
[2020-06-30 01:43] VITALS: BP_SYST 104
--- NOTE | 2020-06-30 02:05 | NUR ---
Rounds: Assisted patient to bathroom at this time. No acute distress. Breathing is even, nonlabored. Call light is with patient. Safety and fall precautions in place. Will continue to monitor.
--- NOTE | 2020-06-30 04:15 | NUR ---
Rounds: Patient is watch tv in bed. No acute distress. Respirations are even, nonlabored room air. Call light is with patient. Safety and fall precautions in place. Will continue to monitor.
--- NOTE | 2020-06-30 06:05 | NUR ---
Closing Note: Patient is in bed, watching tv. No acute distress. Even, nonlabored breathing on room air. IV site is patent and intact. Bed is locked at lowest position. Side rails up x2. Bed alarm on. Call light is with patient. Safety and fall precautions in place. Will endorse to en NUNEZ. Addendum: 06/30/20 at 0632 by Stephanie Oropeza RN All needs met.
[2020-06-30 06:17] LABS: BASOPHILS % (AUTO) 0.6 % (0.0-2.0); EOSINOPHILS # (AUTO) 0.1 K/uL (0.0-0.4); EOSINOPHILS % (AUTO) 1.3 % (0.0-4.0); HEMATOCRIT 28.1 % (36-48); HEMOGLOBIN 9.5 g/dL (12.0-16.0); LYMPHOCYTES # (AUTO) 1.2 K/uL (1.0-5.5); LYMPHOCYTES % (AUTO) 25.4 % (20.5-51.5); MEAN CORPUSCULAR HEMOGLOBIN 33 pg (27-31); MEAN CORPUSCULAR HGB CONC 34 % (32-36); MEAN CORPUSCULAR VOLUME 98 fL (79.0-98.0); MONOCYTES # (AUTO) 0.5 K/uL (0.0-1.0); MONOCYTES % (AUTO) 11.5 % (1.7-9.3); NEUTROPHILS # (AUTO) 2.9 K/uL (1.8-7.7); NEUTROPHILS % (AUTO) 61.2 % (40.0-70.0); PLATELET COUNT (AUTO) 198 K/uL (130-430); RED BLOOD CELL COUNT(AUTO) 2.86 MIL/uL (4.2-6.2); RED CELL DISTRIBUTION WIDTH 13.5 % (9.0-15.0); WHITE BLOOD COUNT (AUTO) 4.7 K/uL (4.8-10.8)
[2020-06-30 07:25] LABS: ALANINE AMINOTRANSFERASE 33 U/L (12-78); ANION GAP 5 (5-15); ASPARTATE AMINOTRANSFERASE 25 U/L (10-37); CALCIUM 8.1 mg/dL (8.4-11.0); CHLORIDE 97 mmol/L (98-107); CREATININE 0.62 mg/dL (0.55-1.30); GLUCOSE 82 mg/dL (70-99); LIPASE 951 U/L (73-393); POTASSIUM 5.1 mmol/L (3.5-5.1); SODIUM SERUM 130 mmol/L (136-145); TOTAL BILIRUBIN 0.5 mg/dL (0.0-1.0); UREA NITROGEN, BLOOD 21 mg/dL (8-21)
--- NOTE | 2020-06-30 08:00 | NUR ---
Opening Notes Patient is awake, alert and oriented x4. No resp distress noted. Breathing is even and unlabored. Pt denies any pain at this time. Pt reports constipation. IV site on left FA, 22 gauge intact at this time, flushing well. Dressing is clean and dry, wrapped in gauze. NS @ 125 cc/hr, infusing well at this time. Pt is ambulatory with FWW, steady gait. Pt denies any NVD, cough or abnormal bleeding. All needs met. Safety and fall precautions in place. Call light within reach. Bed in lowest position, locked. Will continue to monitor.
--- NOTE | 2020-06-30 08:15 | NUR ---
Patient is being seen and examined by DR. LEVY Addendum: 06/30/20 at 1545 by Mona Jason RN Pt is refusing colonoscopy, will inform Dr. Keyes
--- NOTE | 2020-06-30 10:00 | NUR ---
Patient is being seen and examined by DR. CHANEY
--- NOTE | 2020-06-30 10:15 | NUR ---
High K+ @ 5.[address] Keyes of patients elevated potassium levels. MD aware and agreed. No new orders at this time. Will continue to monitor.
[2020-06-30 11:16] LABS: CHOLESTEROL 165 mg/dL (<200); HDL CHOLESTEROL 103 mg/dL (>55); LDL CHOLESTEROL 42 mg/dL (<100); TRIGLYCERIDES 26 mg/dL (30-150)
[2020-06-30] MEDS: POLYETHYLENE GLYCOL 3350, 17 GM/ POWD.PACK PO SCH ×2 (11:21→21:52)
[2020-06-30 11:43] VITALS: BP_SYST 117
--- NOTE | 2020-06-30 12:45 | NUR ---
Notes Patient is ambulatory, steady gait. Pt independently walks to the restroom with her FWW. Pt still reports feeling constipated. No needs at this time. Will continue to monitor.
--- NOTE | 2020-06-30 14:45 | NUR ---
Notes Patient is laying in bed, watching TV. No resp distress noted. Breathing is even and unlabored. Pt denies any pain at this time. No needs at this time. Will continue to monitor.
--- NOTE | 2020-06-30 16:00 | NUR ---
Notes Patient is laying in bed and speaking with her , Hasmukh on the phone. No resp distress noted. Breathing is even and unlabored. Denies any pain. Will continue to monitor.
[2020-06-30 16:11] VITALS: BP_SYST 117
[2020-06-30 16:14] LABS: TOTAL IRON BIND. CAPACITY 185 ug/dL (250-450)
--- NOTE | 2020-06-30 18:55 | NUR ---
Closing Notes/OK FOR COLONOSCOPY Patient is awake, alert and oriented x4. No resp distress noted. Breathing is even and unlabored. Pt denies any pain at this time. Pt reports constipation. IV site on left FA, 22 gauge intact at this time, flushing well. Dressing is clean and dry, wrapped in gauze. NS @ 125 cc/hr, infusing well at this time. Pt is ambulatory with FWW, steady gait. Pt denies any NVD, cough or abnormal bleeding. All needs met. Safety and fall precautions in place. Call light within reach. Bed in lowest position, locked. Will continue to monitor. Addendum: 06/30/20 at 1905 by Mona Jason RN S/w patient and educated patient of need of colonoscopy as recommended by Dr. Padilla. Patient aware and agreed. Will endorse to next nurse to contact Dr. Padilla.
--- NOTE | 2020-06-30 19:20 | NUR ---
OPENING NOTES Patient is resting, eyes closed. No distress noted. IV site patent, dressings c/d/i, IVF running. Received report that patient agreed to colonoscopy and will notify Dr. Padilla. Call light within reach, bed alarm on, bed at lowest position. Will continue to monitor.
[2020-06-30] MEDS ORDERED: GOLYTELY / COLYTE SOLUTION 4 LITERS PO ONE (21:30)
[2020-06-30] MEDS ORDERED: GOLYTELY / COLYTE SOLUTION 4 LITERS ONE (22:26)
--- NOTE | 2020-07-01 00:06 | NUR ---
Patient resting in bed after ambulating to the restroom with assistance. Patient states that she does not want to use the commode that is by bedside. Almost half of Golytely completed, patient tolerating well. Will continue to monitor.
[2020-07-01 00:39] VITALS: BP_SYST 117
[2020-07-01] MEDS: NACL 0.9% 1,000 ML IV SCH ×3 (02:02→17:30)
--- NOTE | 2020-07-01 02:55 | NUR ---
Patient is sitting at the toilet. Bowel movement noted. No distress noted. Will continue to monitor.
--- NOTE | 2020-07-01 06:24 | NUR ---
CLOSING NOTES Patient is resting, eyes closed. No distress noted. IV site patent, dressings c/d/i. Tap water enema 1.5 L provided, minimal sediments and clear bowel noted. Commode at bedside. Call light within reach, bed alarm on, bed at lowest position. All needs met throughout shift. Will endorse care to oncoming shift that patient is to have a colonoscopy in the morning.
[2020-07-01] MEDS ORDERED: SIMETHICONE 40 MG/0.6 ML ML ONE (07:20)
[2020-07-01] MEDS: MIDAZOLAM HCL 5 MG/5 ML VIAL ONE ×3 (07:52→08:03)
[2020-07-01] MEDS: fentaNYL CITRATE/PF 100 MCG/2 ML AMP ONE ×2 (07:52→07:57)
--- NOTE | 2020-07-01 07:55 | NUR ---
Opening Notes Patient is currently receiving her colonoscopy with Dr. Ga. Will wait for patient to return to room.
[2020-07-01 09:00] VITALS: BP_SYST 114
[2020-07-01] MEDS: POLYETHYLENE GLYCOL 3350, 17 GM/ POWD.PACK PO SCH ×2 (09:00→21:00)
--- NOTE | 2020-07-01 09:05 | NUR ---
PT BACK FROM COLONOSCOPY Received patient back from colonoscopy, stable. Patient is awake, alert and oriented x4. No resp distress noted. breathing is even and unlabored. Pt denies any pain at this time. Patient is ambulatory with FWW, steady gait. Patient reports "feeling tired, I just want to rest." IVF infusing well at this time: NS @ 125 cc/hr, infusing well. All needs met. Safety and fall precautions in place. Bed in lowest position, locked. Will continue to monitor.
--- NOTE | 2020-07-01 10:30 | NUR ---
Notes Patient is resting in her room, eyes closed. No resp distress noted. Breathing is even and unlabored. Pt refused Miralax medication this morning. Per patient, "I dont need it, I have had multiple bowel movements now." Will continue to monitor.
[2020-07-01 12:00] VITALS: BP_SYST 116
--- NOTE | 2020-07-01 12:50 | NUR ---
Notes Patient is sleeping in bed at this time. No resp distress noted. Breathing is even and unlabored. Pt shows no signs of pain at this time. Will continue to monitor.
[2020-07-01 16:07] VITALS: BP_SYST 115
--- NOTE | 2020-07-01 16:25 | NUR ---
Notes Patient is ambulatory with FWW, can independently walk to the restroom, steady gait. Patient reports having a BM, soft. No needs at this time. Will continue to monitor.
--- NOTE | 2020-07-01 18:15 | NUR ---
Closing Notes Patient is awake, alert and oriented x4. No resp distress at this time. Breathing is even and unlabored. Pt denies any pain at this time. IV site on left FA, 22 gauge intact at this time. NS @ 125 cc/hr, infusing well at this time. Pt is ambulatory with FWW. Pt was encouraged to eat dinner, in order to go home tomorrow. Patient aware and agreed. Pt denies any NVD, cough or abnormal bleeding. All needs met. Safety and fall precautions in place. Bed in lowest position, locked. Will continue to monitor.
--- NOTE | 2020-07-01 19:30 | NUR ---
Opening notes Received report. Patient is resting in bed, no signs of distress noted. Breathing even and unlabored on room air. IV patent and intact, infusing fluids. No needs at this time. Call light with the patient. Safety precautions in place.
[2020-07-01 20:00] VITALS: BP_SYST 116
--- NOTE | 2020-07-01 21:00 | NUR ---
Refused Miralax Patient having loose stools throughout day. Patient provided with toothbrush and toothpaste. No other needs. Call light with the patient. Safety precautions in place.
--- NOTE | 2020-07-02 00:15 | NUR ---
RN rounds Patient is resting in bed, no signs of distress noted. Breathing even and unlabored on room air. IVF infusing well. No needs at this time. Call light with the patient. Safety precautions in place.
[2020-07-02 00:49] VITALS: BP_SYST 118
[2020-07-02] MEDS: NACL 0.9% 1,000 ML IV SCH ×2 (01:03→08:15)
--- NOTE | 2020-07-02 04:48 | NUR ---
RN rounds Patient resting in bed, no signs of distress noted. Breathing even and unlabored. No needs at this time. Call light with the patient. Safety precautions in place.
--- NOTE | 2020-07-02 07:07 | NUR ---
Closing notes Patient is resting in bed, no signs of distress noted. Breathing even and unlabored on room air. IVF infusing well. All needs met throughout the shift. Call light with the patient. Safety precautions in place. Will endorse care to day shift RN.
[2020-07-02 08:00] VITALS: BP_SYST 116
--- NOTE | 2020-07-02 08:00 | NUR ---
Pt A/O x4. No distress noted or reported. Pt denied any pain or discomfort. Diet advanced to Mechanical Soft per Dr. Keyes orders. Pt tolerating well. Pt stated that she feels good and is ready to go home. Dr. Keyes aware of the same. Pt to be discharged this morning. Safety precautions in place.
[2020-07-02 09:53] VITALS: BP_SYST 123
[2020-07-02] MEDS: POLYETHYLENE GLYCOL 3350, 17 GM/ POWD.PACK PO SCH (10:18)
--- NOTE | 2020-07-02 13:12 | NUR ---
DISCHARGE INSTRUCTIONS and DISCHARGE Discharge instructions given by MAYRA Soto. Pt verbalized understanding via teach back method. PIV removed. No bleeding or oozing at site. Yas Reyes accompanied pt to private vehicle driven by spouse. Pt safely discharged. Addendum: 07/02/20 at 1319 by Fifteen independent marketing consultant TIME: 1125: DISCHARGE INSTRUCTIONS and DISCHARGE Discharge instructions given by MAYRA Soto. Pt verbalized understanding via teach back method. PIV removed. No bleeding or oozing at site. Yas Reyes accompanied pt to private vehicle driven by spouse. Pt safely discharged.
--- NOTE | 2020-07-08 12:28 | NUR ---
Discharge Follow Up Call: CONCRETE BATCH PLANT OPERATOR phoned pt and spoke with spouse Hasmukh @ [phone]. Per Hasmukh, pt is "okay" but pt has "swelling of feet". Per Hasmukh, the patient has an appointment on 07/11 for her leg swelling and has an appointment with PCP on 07/28. Per Hasmukh, the patient did not understand the discharge instructions and wished he was given the instructions instead. Per Hasmukh, he is not aware of the outpatient EUS with Dr. Grady. CONCRETE BATCH PLANT OPERATOR phoned Grecia with HCP and stated authorization has been requested; awaiting for Grecia's call back to confirm approval and auth# to give to patient. CONCRETE BATCH PLANT OPERATOR offered advertising agent follow up; spouse approved and emailed Haley Gil SS will remain available and will call patient back once HCP auth for EUS is received. Please provide info below to patient. Dr. Grady [address] [phone] Addendum: 07/08/20 at 1339 by Felicita SUAREZ Auth# [id number] for Dr. Grady provided to spouse, Hasmukh.
== END 2020-07-02 11:25 | disposition home or self-care (01) | DRG 439 ==
LOC: SED 20:45 → SMU 23:10
PROVIDERS: ADMIT Internal Medicine Hospice and Palliative Medicine; ATTEND Internal Medicine Hospice and Palliative Medicine
PROC: 0DBL8ZZ Excision of Transverse Colon, Via Natural or Artificial Opening Endoscopic (ICD-10-PCS; 2020-07-01)
PROC: 0DBN8ZX Excision of Sigmoid Colon, Via Natural or Artificial Opening Endoscopic, Diagnostic (ICD-10-PCS; 2020-07-01)
PROC: 0DBL8ZX Excision of Transverse Colon, Via Natural or Artificial Opening Endoscopic, Diagnostic (ICD-10-PCS; 2020-07-01)
PROC: 0DBN8ZZ Excision of Sigmoid Colon, Via Natural or Artificial Opening Endoscopic (ICD-10-PCS; principal; 2020-07-01 07:30)
DX: K85.90 Acute pancreatitis without necrosis or infection, unspecified (principal); E46 Unspecified protein-calorie malnutrition; E87.1 Hypo-osmolality and hyponatremia; K86.2 Cyst of pancreas; Q43.8 Other specified congenital malformations of intestine; Z68.1 Body mass index [BMI] 19.9 or less, adult; K44.9 Diaphragmatic hernia without obstruction or gangrene; K29.70 Gastritis, unspecified, without bleeding; E86.0 Dehydration; D53.9 Nutritional anemia, unspecified; E11.9 Type 2 diabetes mellitus without complications; F32.9 Major depressive disorder, single episode, unspecified; G47.33 Obstructive sleep apnea (adult) (pediatric); Z20.828 Contact with and (suspected) exposure to other viral communicable diseases; I10 Essential (primary) hypertension; I25.10 Atherosclerotic heart disease of native coronary artery without angina pectoris; J45.909 Unspecified asthma, uncomplicated; K64.4 Residual hemorrhoidal skin tags; K63.5 Polyp of colon; I95.9 Hypotension, unspecified; G93.0 Cerebral cysts; Z90.49 Acquired absence of other specified parts of digestive tract; Z88.0 Allergy status to penicillin; Z88.1 Allergy status to other antibiotic agents; Z88.5 Allergy status to narcotic agent; Z88.8 Allergy status to other drugs, medicaments and biological substances
CPT/HCPCS: 36415; 45385; 80053; 80061; 81003; 83540-TC; 83550-TC; 83690-TC; 84484; 85025; 85610-TC; 88305; 96360; 99291; 99292; J2250; J3010; J7030

== ENCOUNTER 2020-07-09 15:54 | Emergency (ER) | payer BC, SELFPAY ==
[~2020-07-09] VITALS: Ht 160 cm; Wt 61.2 kg
[2020-07-09 15:58] VITALS: BP_SYST 132
--- NOTE | 2020-07-09 16:03 | NUR ---
Patient to ER bed 3 to gown for evaluation. Side rails up.
--- NOTE | 2020-07-09 16:03 | NUR ---
Pt bib EMS from home with c/o BLE swelling x 1week. Reports being seen by PMD and given a medication but it's not working. Denies any pain at this time. V/S stable, pt is afebrile. Currently resting in bed, will continue to monitor.
--- NOTE | 2020-07-09 16:04 | NUR ---
ER Dr. Michel at bedside examining patient.
--- NOTE | 2020-07-09 16:40 | NUR ---
Radiology at bedside for CXR
[2020-07-09 17:12] LABS: BASOPHILS % (AUTO) 0.6 % (0.0-2.0); EOSINOPHILS # (AUTO) 0.1 K/uL (0.0-0.4); EOSINOPHILS % (AUTO) 1.5 % (0.0-4.0); HEMATOCRIT 26.8 % (36-48); HEMOGLOBIN 9.3 g/dL (12.0-16.0); LYMPHOCYTES % (AUTO) 17.3 % (20.5-51.5); MEAN CORPUSCULAR HEMOGLOBIN 34 pg (27-31); MEAN CORPUSCULAR HGB CONC 35 % (32-36); MEAN CORPUSCULAR VOLUME 98 fL (79.0-98.0); MONOCYTES # (AUTO) 0.6 K/uL (0.0-1.0); MONOCYTES % (AUTO) 10.6 % (1.7-9.3); PLATELET COUNT (AUTO) 237 K/uL (130-430); RED BLOOD CELL COUNT(AUTO) 2.74 MIL/uL (4.2-6.2); RED CELL DISTRIBUTION WIDTH 13.3 % (9.0-15.0); WHITE BLOOD COUNT (AUTO) 5.7 K/uL (4.8-10.8)
--- NOTE | 2020-07-09 17:12 | NUR ---
, Hasmukh, would like a call for an update when possible [phone]
[2020-07-09 17:23] LABS: ANION GAP 1 (5-15); CALCIUM 8.4 mg/dL (8.4-11.0); CHLORIDE 94 mmol/L (98-107); GLUCOSE 94 mg/dL (70-99); POTASSIUM 4.7 mmol/L (3.5-5.1); SODIUM SERUM 127 mmol/L (136-145); UREA NITROGEN, BLOOD 30 mg/dL (8-21)
[2020-07-09 17:31] LABS: ALANINE AMINOTRANSFERASE 46 U/L (12-78); ALBUMIN 3.2 g/dL (3.4-4.8); ASPARTATE AMINOTRANSFERASE 25 U/L (10-37); TOTAL BILIRUBIN 0.3 mg/dL (0.0-1.0)
[2020-07-09 19:20] VITALS: BP_SYST 132
--- NOTE | 2020-07-09 19:21 | NUR ---
Patient given written and verbal discharge instructions and verbalizes understanding. ER MD discussed with patient the results and treatment provided. Patient in stable condition. ID arm band removed. Rx of Bumex given. Patient educated on pain management and to follow up with PMD. Pain Scale 0. Opportunity for questions provided and answered. Medication side effect fact sheet provided.
== END 2020-07-09 19:20 | disposition home or self-care (01) ==
LOC: SED 15:54
DX: R60.0 Localized edema (principal); G47.30 Sleep apnea, unspecified; I10 Essential (primary) hypertension; E11.9 Type 2 diabetes mellitus without complications; J44.9 Chronic obstructive pulmonary disease, unspecified; Z86.73 Personal history of transient ischemic attack (TIA), and cerebral infarction without residual deficits; Z88.0 Allergy status to penicillin; Z88.6 Allergy status to analgesic agent; Z88.1 Allergy status to other antibiotic agents
CPT/HCPCS: 36415; 71045; 80053; 83880; 84484; 85025; 93005; 99285

== ENCOUNTER 2020-07-15 13:54 | Inpatient (IN) | payer BC, SELFPAY ==
[~2020-07-15] VITALS: Ht 160 cm; Wt 50.9 kg
[2020-07-15] VITALS: BP_SYST 106
[2020-07-15 12:00] VITALS: BP_SYST 106
[2020-07-15 13:58] VITALS: BP_SYST 134
--- NOTE | 2020-07-15 14:06 | NUR ---
Patient to ER bed 2 to gown for evaluation. Side rails up. Report given to Indu NUNEZ.
--- NOTE | 2020-07-15 14:15 | NUR ---
Patient presented to ER C/O ALOC. Patient BIB ACLS from HOME A&Ox3, afebrile, skin pink and warm, denies pain, denies N/V/D. Per EMS increased confusion and generalized weakness. Per pt has increased confusion for 1 1/2 months.
--- NOTE | 2020-07-15 14:50 | NUR ---
ER Dr. Eason at bedside examining patient.
[2020-07-15 15:18] LABS: BASOPHILS % (AUTO) 0.7 % (0.0-2.0); EOSINOPHILS % (AUTO) 0.7 % (0.0-4.0); HEMATOCRIT 28.1 % (36-48); HEMOGLOBIN 9.8 g/dL (12.0-16.0); LYMPHOCYTES # (AUTO) 0.9 K/uL (1.0-5.5); LYMPHOCYTES % (AUTO) 16.3 % (20.5-51.5); MEAN CORPUSCULAR HEMOGLOBIN 34 pg (27-31); MEAN CORPUSCULAR HGB CONC 35 % (32-36); MEAN CORPUSCULAR VOLUME 97 fL (79.0-98.0); MONOCYTES # (AUTO) 0.6 K/uL (0.0-1.0); MONOCYTES % (AUTO) 11.3 % (1.7-9.3); NEUTROPHILS # (AUTO) 4.1 K/uL (1.8-7.7); PLATELET COUNT (AUTO) 266 K/uL (130-430); RED BLOOD CELL COUNT(AUTO) 2.89 MIL/uL (4.2-6.2); WHITE BLOOD COUNT (AUTO) 5.7 K/uL (4.8-10.8)
[2020-07-15 15:42] LABS: ANION GAP 4 (5-15); CALCIUM 8.4 mg/dL (8.4-11.0); CHLORIDE 89 mmol/L (98-107); CREATININE 0.82 mg/dL (0.55-1.30); GLUCOSE 83 mg/dL (70-99); SODIUM SERUM 120 mmol/L (136-145); UREA NITROGEN, BLOOD 29 mg/dL (8-21)
--- NOTE | 2020-07-15 15:45 | NUR ---
# 16 FR In and Out catheter with use of sterile technique. Immediate return of100 ml light yellow urine noted. Urine sample collected and sent to lab. Pt tolerated procedure well. Patient unable to toilet self.
[2020-07-15 15:49] LABS: POTASSIUM 6.7 mmol/L (3.5-5.1)
[2020-07-15 15:58] LABS: BILIRUBIN,URINE NEGATIVE (NEGATIVE); BLOOD, URINE NEGATIVE (NEGATIVE); CLARITY/URINE CLEAR (CLEAR); COLOR,URINE YELLOW (YELLOW); GLUCOSE,URINE NEGATIVE (NEGATIVE); KETONES,URINE NEGATIVE (NEGATIVE); LEUKOCYTE ESTERASE ,URINE NEGATIVE (NEGATIVE); NITRITE, URINE NEGATIVE (NEGATIVE); PH,URINE 7.5 (5.0-8.0); PROTEIN URINE NEGATIVE (NEGATIVE); UROBILINOGEN,URINE 0.2 (0.2-1.0)
--- NOTE | 2020-07-15 16:05 | NUR ---
REPORT GIVEN TO PATI NUNEZ
[2020-07-15] MEDS ORDERED: DEXTROSE 50% JECT 50 ML DISP.SYRIN IVP ONE ×3 (16:15→20:15)
[2020-07-15] MEDS ORDERED: INSULIN REGULAR, HUMAN 10 UNITS/0.1 ML INJ IVP ONE (16:15)
[2020-07-15] MEDS ORDERED: NS 500 ML IV ONE (16:15)
[2020-07-15] MEDS ORDERED: FUROSEMIDE 40 MG/4 ML VIAL IVP ONE (16:15)
[2020-07-15 17:06] LABS: ANION GAP 4 (5-15); CALCIUM 8.3 mg/dL (8.4-11.0); CHLORIDE 91 mmol/L (98-107); CREATININE 0.79 mg/dL (0.55-1.30); GLUCOSE 81 mg/dL (70-99); SODIUM SERUM 120 mmol/L (136-145); UREA NITROGEN, BLOOD 28 mg/dL (8-21)
--- NOTE | 2020-07-15 17:18 | NUR ---
Medication reconciliation completed with information provided by PT. Any prior medication reconciliation on file was reviewed and corrected.
[2020-07-15 17:21] LABS: POTASSIUM 6.2 mmol/L (3.5-5.1)
--- NOTE | 2020-07-15 17:35 | NUR ---
# 16 FR Delgado catheter with use of sterile technique. Immediate return of 50 cc ML urine noted. Bedside drainage bag placed below level of bladder. DELGADO CATH INSERTED PER MD ORDER.
--- NOTE | 2020-07-15 17:40 | NUR ---
medicated per md orders. patient tolerated well.
--- NOTE | 2020-07-15 17:41 | NUR ---
Patient is AAO x4 from home. Patient states she arrived her with complaining of hypertension. Denies any pain. No other complaints/injuries per patient. 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 Telemed called for evaluation
--- NOTE | 2020-07-15 18:50 | NUR ---
CALLED FOR A TELE BED. SPOKE W/ ANNY. UNABLE TO GET BED ASSINGMENT AT THE MOMENT
--- NOTE | 2020-07-15 18:53 | NUR ---
Patient complaining of nausea. MD notified. Verbal order for zofran 4 mg IVP and repeat BMP by Dr. Lopez
--- NOTE | 2020-07-15 18:55 | NUR ---
2 liters of clear yellow urine Emptied Urinary bag. Md notified
[2020-07-15] MEDS ORDERED: ONDANSETRON HCL 4 MG/2 ML VIAL IVP ONE (19:00)
[2020-07-15] MEDS ORDERED: ONDANSETRON HCL 4 MG/2 ML VIAL ONE (19:11)
--- NOTE | 2020-07-15 19:23 | NUR ---
Patient will be admitted to care of Dr. BENNETT. Admitted to telemetry unit. bed placement pending. Complete and up to date summary report printed. SBAR report to be given at bedside with opportunity for questions.
[2020-07-15 19:43] LABS: ANION GAP 9 (5-15); CALCIUM 8.6 mg/dL (8.4-11.0); CHLORIDE 91 mmol/L (98-107); CREATININE 0.82 mg/dL (0.55-1.30); POTASSIUM 4.8 mmol/L (3.5-5.1); SODIUM SERUM 122 mmol/L (136-145); UREA NITROGEN, BLOOD 26 mg/dL (8-21)
[2020-07-15 20:03] LABS: GLUCOSE 28 mg/dL (70-99)
--- NOTE | 2020-07-15 20:47 | NUR ---
Transfer to [facility] via ACLS protocol. Licensed nurse present. IV present no signs or symptoms of infiltration.
--- NOTE | 2020-07-15 21:42 | NUR ---
ADMISSION: The patient, ASHANTI GALAVIZ, 74 y/o, F admitted by VLAD BENNETT MD, WITH THE DIAGNOSIS OF HYPERKALEMIA AND HYPONATREMIA TO ROOM 103 B , PRIMARY RN IS AWARE OF ADMISSION .
[2020-07-15 21:54] VITALS: BP_SYST 106
[2020-07-15] MEDS: D5NS 1,000 ML IV SCH (22:42)
--- NOTE | 2020-07-15 22:58 | NUR ---
ROUNDS Patient resting in bed, AAOX2, forgetful, breathing evenly and nonlabored on room air. Patient has an IV on right forearm 20g, patent and benign, no s/s of infection or infiltration noted at this time, IVF running, patient tolerating it well. Patient also has a Wright catheter secured and draining by gravity. Educated patient on plan of care, fall/safety/aspiration precautions, call light system, patient said "ok." Patient denies any pain at this time. No s/s of distress at this time, no other needs at this time. Fall/safety/aspiration precautions, will continue to monitor.
[2020-07-15] MEDS ORDERED: ONDANSETRON HCL 4 MG/2 ML VIAL IVP PRN (23:30)
[2020-07-15] MEDS ORDERED: ACETAMINOPHEN 325 MG TABLET PO PRN (23:30)
[2020-07-15] MEDS ORDERED: LORazepam 2 MG/ML VIAL IVP PRN (23:30)
--- NOTE | 2020-07-15 23:54 | NUR ---
SPOKE WITH DR. DONALD MD ORDERED FOR ACCUCHECKS ACHS, REG INSULIN SLIDING SCALE, CARDIAC AND DIABETIC DIET, AND SCD'S FOR DVT PROPHYLAXIS.
[2020-07-16] VITALS: BP_SYST 106
[2020-07-16] MEDS ORDERED: INSULIN REGULAR, HUMAN 100 UNITS/ML, 10 ML VIAL (humuLIN R) SUBCUT PRN
--- NOTE | 2020-07-16 04:47 | NUR ---
CONSULT: CONSULT CALLED FOR DR. VAUGHN I SPOKE WITH SANTHOSH FORBES REASON FOR CONSULT: HYPONATREMIA REQUESTING CONSULT: SHIV WORK MEASUREMENT ENGINEER PHONE NUMBER: [phone]
[2020-07-16] MEDS: D5NS 1,000 ML IV SCH ×2 (06:14→17:50)
--- NOTE | 2020-07-16 06:16 | NUR ---
CLOSING NOTES Patient resting in bed, awake, breathing evenly and nonlabored on room air. IVF running, patient tolerating it well. BS checked, no coverage needed. Patient agreed to have a sip of water. Patient denies any pain at this time. SCD's placed earlier when ordered. Hygiene care was done with EVENT CREW TECHNICIAN earlier. Needs met throughout the shift. No s/s of distress at this time, no other needs at this time. Fall/safety/aspiration precautions, will endorse care to morning shift RN.
[2020-07-16 06:37] LABS: BASOPHILS % (AUTO) 0.2 % (0.0-2.0); EOSINOPHILS % (AUTO) 0.4 % (0.0-4.0); HEMOGLOBIN 10.5 g/dL (12.0-16.0); LYMPHOCYTES # (AUTO) 0.7 K/uL (1.0-5.5); LYMPHOCYTES % (AUTO) 8.5 % (20.5-51.5); MEAN CORPUSCULAR HEMOGLOBIN 34 pg (27-31); MEAN CORPUSCULAR HGB CONC 35 % (32-36); MEAN CORPUSCULAR VOLUME 97 fL (79.0-98.0); MONOCYTES # (AUTO) 0.4 K/uL (0.0-1.0); MONOCYTES % (AUTO) 5.4 % (1.7-9.3); NEUTROPHILS # (AUTO) 6.9 K/uL (1.8-7.7); NEUTROPHILS % (AUTO) 85.5 % (40.0-70.0); PLATELET COUNT (AUTO) 272 K/uL (130-430); RED BLOOD CELL COUNT(AUTO) 3.08 MIL/uL (4.2-6.2)
[2020-07-16 07:01] LABS: ALANINE AMINOTRANSFERASE 33 U/L (12-78); ALBUMIN 3.1 g/dL (3.4-4.8); ANION GAP 5 (5-15); ASPARTATE AMINOTRANSFERASE 20 U/L (10-37); CALCIUM 8.1 mg/dL (8.4-11.0); CHLORIDE 92 mmol/L (98-107); CREATININE 0.82 mg/dL (0.55-1.30); GLUCOSE 110 mg/dL (70-99); PHOSPHORUS 4.7 mg/dL (2.7-4.5); SODIUM SERUM 124 mmol/L (136-145); TOTAL BILIRUBIN 0.6 mg/dL (0.0-1.0); UREA NITROGEN, BLOOD 25 mg/dL (8-21)
[2020-07-16 07:37] LABS: POTASSIUM 5.9 mmol/L (3.5-5.1)
[2020-07-16 08:00] VITALS: BP_SYST 115
--- NOTE | 2020-07-16 08:21 | NUR ---
Nutrition Update David scale 15 noted. Pt admitted for Hyperkalemia, Hyponatremia Diet: CCHO, Cardiac Diet BMI: 19.9 kg/m2 RD to follow per nutrition care standards.
--- NOTE | 2020-07-16 08:27 | NUR ---
CONSULTATION PAGED REASON FOR CONSULTATION:BRAIN CYST WAS CONSULT CALLED?y PERSON WHO WAS NOTIFIED:LEANN CONSULTING PHYSICIAN:SUSAN SILVA STOCK DEALER SPECIALTY:NEURO SURGEON STOCK DEALER PHONE NUMBER:[phone] ORDERING PHYSICIAN:LIGIA RIVERA
[2020-07-16] MEDS: SODIUM CHLORIDE 500 MG TABLET PO SCH (08:30)
--- NOTE | 2020-07-16 08:30 | NUR ---
CONSULTATION PAGED REASON FOR CONSULTATION:BRAIN CYST WAS CONSULT CALLED?Y PERSON WHO WAS NOTIFIED:GRAHAM DALE TEXT MESSAGED CONSULTING PHYSICIAN:GRAHAM DALE STATION WORKER SPECIALTY:NEURO STATION WORKER PHONE NUMBER:[phone] ORDERING PHYSICIAN:LIGIA RIVERA
[2020-07-16] MEDS: CYANOCOBALAMIN 1000 mCg TABLET PO SCH (08:31)
[2020-07-16 12:30] VITALS: BP_SYST 119
[2020-07-16] MEDS ORDERED: SULF1TAB48 PO (13:55)
[2020-07-16] MEDS ORDERED: BISM262T15 PO (14:08)
[2020-07-16] MEDS ORDERED: ONDA4TAB5 PO (14:08)
[2020-07-16] MEDS ORDERED: CALC117719 PO (14:08)
[2020-07-16 16:00] VITALS: BP_SYST 111; BP_SYST 117
--- NOTE | 2020-07-16 19:02 | NUR ---
Left message to Dr. Keyes re: pt's called with update of pt's past Dx: of Mitrovalve regurgitation and Home med list is updated. Need to know if he want to order these meds. Awaiting response.
--- NOTE | 2020-07-16 19:07 | NUR ---
Notified Dr Keyes re: pt's stated pt was diagnosed with Mitral valve regurgitation some time ago, but he does not remember when and pt's home meds are also update. Dr. Keyes to review with possible new orders.
--- NOTE | 2020-07-16 19:09 | NUR ---
Per Dr. Keyes, remind Dr. Spence re: consult with pt. Paged Dr. Spence. Awaiting response.
[2020-07-17] MEDS: D5NS 1,000 ML IV SCH ×2 (01:30→11:30)
[2020-07-17 07:00] VITALS: BP_SYST 106
--- NOTE | 2020-07-17 07:00 | NUR ---
Down time 07/16/20 8037 - 07/17/20 5842
--- NOTE | 2020-07-17 07:16 | NUR ---
closing note Patient is resting in bed, she is awake. No distress, non labored breathing on room air. IVF infusing via IV to RFA. Needs met throughout shift, safety precautions maintained. Will endorse care to day shift nurse
[2020-07-17 07:19] LABS: ANION GAP 5 (5-15); CALCIUM 7.9 mg/dL (8.4-11.0); CHLORIDE 96 mmol/L (98-107); CREATININE 0.67 mg/dL (0.55-1.30); GLUCOSE 92 mg/dL (70-99); SODIUM SERUM 126 mmol/L (136-145); UREA NITROGEN, BLOOD 17 mg/dL (8-21)
--- NOTE | 2020-07-17 08:15 | NUR ---
NURSES REPORT AND ASSESSMENT Report obtained from night nurse- Nivia Darby at 0715. Assumed care of patient- awake and alert. No c/o pain or discomfort. VSS. Afeb. IV D5NS at 100 ml/hr to R FA. No redness or swelling. Call light within reach. Siderails elevated x 3. Instructed to notified nurse for any c/o pain or discomfort.
[2020-07-17] MEDS: SODIUM CHLORIDE 500 MG TABLET PO SCH ×2 (09:00→11:22)
[2020-07-17] MEDS: CYANOCOBALAMIN 1000 mCg TABLET PO SCH (11:22)
[2020-07-17 12:00] VITALS: BP_SYST 126
--- NOTE | 2020-07-17 13:24 | NUR ---
PAGED PAGED AT [phone] SPOKE WITH JET.
--- NOTE | 2020-07-17 15:00 | NUR ---
DISCHARGE NOTES Patient dc'd to home by other nurse. No c/o pain or discomfort. IV removed. Dc'd via wheelchair and Hasmukh Jc took patient home.
--- NOTE | 2020-07-17 15:31 | NUR ---
DC home postpone: There is a DC order to home since the morning but medication reconciliation was not done. Dr. Keyes has been paged twice, and spoke to him twice , and also remind MD to call patient's . Give him the #. Until now it's still not done.
[2020-07-17] MEDS ORDERED: AMLO5TAB4 PO (15:33)
[2020-07-17 15:45] VITALS: BP_SYST 120
[2020-07-17 16:35] VITALS: BP_SYST 120
--- NOTE | 2020-07-29 11:16 | NUR ---
Discharge Follow Up Phone Call [facility] Sorter phoned patient, , on 07/22/20, 07/23/20, and 07/29/20 and left voicemail messages with reminder to make follow up appointments, offer of assistance, and Social Service contact information. No further calls will be made.
== END 2020-07-17 17:00 | disposition home or self-care (01) | DRG 641 ==
LOC: SED 13:54 → STU 19:20
PROVIDERS: ADMIT Internal Medicine Hospice and Palliative Medicine; ATTEND Internal Medicine Hospice and Palliative Medicine
DX: E87.1 Hypo-osmolality and hyponatremia (principal); G93.40 Encephalopathy, unspecified; E87.5 Hyperkalemia; G93.0 Cerebral cysts; Z79.899 Other long term (current) drug therapy; F41.9 Anxiety disorder, unspecified; I10 Essential (primary) hypertension; Z20.828 Contact with and (suspected) exposure to other viral communicable diseases; Q89.9 Congenital malformation, unspecified; Z88.0 Allergy status to penicillin; Z88.1 Allergy status to other antibiotic agents; Z88.8 Allergy status to other drugs, medicaments and biological substances; Z88.5 Allergy status to narcotic agent
CPT/HCPCS: 36415; 70450-TC; 70551; 71045; 76376; 80048; 80053; 81003; 82533; 82962; 83735-TC; 84100-TC; 84443-TC; 85025; 87081; 93005; 96374; 96375; 99285; G0378; J1815; J1940; J2060; J2405; J7042

== ENCOUNTER 2020-07-19 01:16 | Emergency (ER) | payer BC, SELFPAY ==
[~2020-07-19] VITALS: Ht 154.9 cm; Wt 52.2 kg
[~2020-07-19 01:16] MED LIST changes: +AMLO5TAB4 PO; +BISM262T15 PO; +CALC117719 PO; -LISI40TA4 PO; +ONDA4TAB5 PO
[2020-07-19 02:00] VITALS: BP_SYST 97
--- NOTE | 2020-07-19 02:00 | NUR ---
PT TO BE SEEN BY MD IN TRIAGE AREA.
--- NOTE | 2020-07-19 02:02 | NUR ---
ER Dr. RED at bedside examining patient.
--- NOTE | 2020-07-19 02:05 | NUR ---
PT BIB SPOUSE FOR IRREGULAR LABS. PT WAS DISCHARGED TODAY FROM [facility] AND WAS FEELING WEAKNESS SO SHE WAS INSTRUCTED BY PMD TO GO TO URGENT CARE FOR LAB DRAW. PT AND SPOUSE WERE CALLED AND INSTRUCTED TO GO TO ER FOR FURTHER WORKUP BECAUSE OF IRREGULAR LAB RESULTS.
--- NOTE | 2020-07-19 02:18 | NUR ---
Patient to ER bed 5 to gown for evaluation. Side rails up.
--- NOTE | 2020-07-19 02:46 | NUR ---
BLOOD DRAW DONE PER LAB
[2020-07-19 02:59] LABS: BASOPHILS % (AUTO) 0.7 % (0.0-2.0); EOSINOPHILS # (AUTO) 0.1 K/uL (0.0-0.4); EOSINOPHILS % (AUTO) 1.3 % (0.0-4.0); HEMATOCRIT 31.6 % (36-48); HEMOGLOBIN 10.5 g/dL (12.0-16.0); LYMPHOCYTES # (AUTO) 0.9 K/uL (1.0-5.5); LYMPHOCYTES % (AUTO) 23.7 % (20.5-51.5); MEAN CORPUSCULAR HEMOGLOBIN 33 pg (27-31); MEAN CORPUSCULAR HGB CONC 33 % (32-36); MEAN CORPUSCULAR VOLUME 99 fL (79.0-98.0); MONOCYTES # (AUTO) 0.5 K/uL (0.0-1.0); MONOCYTES % (AUTO) 12.4 % (1.7-9.3); NEUTROPHILS # (AUTO) 2.4 K/uL (1.8-7.7); NEUTROPHILS % (AUTO) 61.9 % (40.0-70.0); PLATELET COUNT (AUTO) 266 K/uL (130-430); RED BLOOD CELL COUNT(AUTO) 3.19 MIL/uL (4.2-6.2); WHITE BLOOD COUNT (AUTO) 3.9 K/uL (4.8-10.8)
[2020-07-19 03:13] LABS: ANION GAP 6 (5-15); CALCIUM 8.5 mg/dL (8.4-11.0); CHLORIDE 94 mmol/L (98-107); GLUCOSE 86 mg/dL (70-99); POTASSIUM 4.7 mmol/L (3.5-5.1); SODIUM SERUM 127 mmol/L (136-145); UREA NITROGEN, BLOOD 24 mg/dL (8-21)
[2020-07-19 03:19] LABS: ALANINE AMINOTRANSFERASE 24 U/L (12-78); ALBUMIN 3.3 g/dL (3.4-4.8); ASPARTATE AMINOTRANSFERASE 22 U/L (10-37); TOTAL BILIRUBIN 0.4 mg/dL (0.0-1.0)
[2020-07-19 03:51] VITALS: BP_SYST 121
--- NOTE | 2020-07-19 03:51 | NUR ---
Patient given written and verbal discharge instructions and verbalizes understanding. ER MD discussed with patient the results and treatment provided. Patient in stable condition. ID arm band removed. No Rx given. Patient educated on pain management and to follow up with PMD. Pain Scale 0/10. Opportunity for questions provided and answered.
== END 2020-07-19 03:51 | disposition home or self-care (01) ==
LOC: SED 01:16
DX: E87.1 Hypo-osmolality and hyponatremia (principal); R00.1 Bradycardia, unspecified; J44.9 Chronic obstructive pulmonary disease, unspecified; I10 Essential (primary) hypertension; E11.9 Type 2 diabetes mellitus without complications; G47.30 Sleep apnea, unspecified; Z86.73 Personal history of transient ischemic attack (TIA), and cerebral infarction without residual deficits; Z79.899 Other long term (current) drug therapy; Z88.0 Allergy status to penicillin; Z88.1 Allergy status to other antibiotic agents
CPT/HCPCS: 36415; 80053; 85025; 99283

== ENCOUNTER 2020-07-19 10:43 | Emergency (ER) | payer BC, SELFPAY ==
[~2020-07-19] VITALS: Ht 160 cm; Wt 44.0 kg
[2020-07-19 10:43] VITALS: BP_SYST 110
--- NOTE | 2020-07-19 10:43 | NUR ---
Patient to ER bed 05 to gown for evaluation. Side rails up.
--- NOTE | 2020-07-19 10:49 | NUR ---
Patient arrived in the ED c/o failure to thrive. Denied any chest pain or shortness of breath. Denied any fevers, chills, nausea or vomiting. Patient is alert and oriented x3, respirations even and unlabored, speaking in full sentences, and ambulating with a steady gait. VSS, pain level 4/10. Informed of the approximate wait time. Instructed to notify ED staff for any changes in condition or worsening of symptoms while waiting to be seen by an ED provider. Patient verbalized understanding.
--- NOTE | 2020-07-19 10:51 | NUR ---
ER Dr. Feliz at bedside examining patient.
--- NOTE | 2020-07-19 11:07 | NUR ---
technology program manager at bedside collecting blood specimen as ordered by Dr. Feliz. Patient tolerated the procedure well.
--- NOTE | 2020-07-19 11:10 | NUR ---
X-ray done at bedside as ordered by Dr. Feliz. Patient tolerated the procedure well.
[2020-07-19 11:19] LABS: BASOPHILS % (AUTO) 0.9 % (0.0-2.0); EOSINOPHILS % (AUTO) 0.4 % (0.0-4.0); HEMATOCRIT 30.1 % (36-48); HEMOGLOBIN 10.3 g/dL (12.0-16.0); LYMPHOCYTES # (AUTO) 0.5 K/uL (1.0-5.5); LYMPHOCYTES % (AUTO) 12.9 % (20.5-51.5); MEAN CORPUSCULAR HEMOGLOBIN 33 pg (27-31); MEAN CORPUSCULAR HGB CONC 34 % (32-36); MEAN CORPUSCULAR VOLUME 98 fL (79.0-98.0); MONOCYTES # (AUTO) 0.3 K/uL (0.0-1.0); MONOCYTES % (AUTO) 9.7 % (1.7-9.3); NEUTROPHILS # (AUTO) 2.7 K/uL (1.8-7.7); NEUTROPHILS % (AUTO) 76.1 % (40.0-70.0); PLATELET COUNT (AUTO) 295 K/uL (130-430); RED BLOOD CELL COUNT(AUTO) 3.07 MIL/uL (4.2-6.2); RED CELL DISTRIBUTION WIDTH 12.9 % (9.0-15.0); WHITE BLOOD COUNT (AUTO) 3.6 K/uL (4.8-10.8)
[2020-07-19 11:34] LABS: BILIRUBIN,URINE NEGATIVE (NEGATIVE); BLOOD, URINE 3+ (NEGATIVE); CLARITY/URINE CLEAR (CLEAR); COLOR,URINE YELLOW (YELLOW); GLUCOSE,URINE NEGATIVE (NEGATIVE); KETONES,URINE NEGATIVE (NEGATIVE); LEUKOCYTE ESTERASE ,URINE TRACE (NEGATIVE); NITRITE, URINE NEGATIVE (NEGATIVE); PROTEIN URINE NEGATIVE (NEGATIVE); UROBILINOGEN,URINE 0.2 (0.2-1.0)
[2020-07-19 11:37] LABS: ANION GAP 6 (5-15); CALCIUM 8.5 mg/dL (8.4-11.0); CHLORIDE 94 mmol/L (98-107); CREATININE 0.79 mg/dL (0.55-1.30); GLUCOSE 110 mg/dL (70-99); POTASSIUM 4.8 mmol/L (3.5-5.1); SODIUM SERUM 127 mmol/L (136-145); UREA NITROGEN, BLOOD 26 mg/dL (8-21)
[2020-07-19 11:39] LABS: PROTHROMBIN TIME 9.8 SECS (9.5-12.5)
[2020-07-19 11:43] LABS: ALANINE AMINOTRANSFERASE 31 U/L (12-78); ALBUMIN 3.3 g/dL (3.4-4.8); ASPARTATE AMINOTRANSFERASE 17 U/L (10-37); LIPASE 748 U/L (73-393); TOTAL BILIRUBIN 0.3 mg/dL (0.0-1.0)
[2020-07-19 11:56] LABS: BACTERIA,URINE FEW /HPF (None Seen); MUCUS,URINE 1+ /LPF (None Seen); RBC,URINE 0-3 /HPF (0-3)
--- NOTE | 2020-07-19 12:06 | NUR ---
Dr Feliz spoke to Dr Keyes regarding patient care. Plan to discharge patient home with at this time.
[2020-07-19] MEDS ORDERED: NS 500 ML IV ONE (12:15)
--- NOTE | 2020-07-19 13:00 | NUR ---
Spoke with patient's , she's ready to be picked up.
[2020-07-19 14:14] VITALS: BP_SYST 110
== END 2020-07-19 14:15 | disposition home or self-care (01) ==
LOC: SED 10:43
DX: R53.1 Weakness (principal); J44.9 Chronic obstructive pulmonary disease, unspecified; I10 Essential (primary) hypertension; E11.9 Type 2 diabetes mellitus without complications; G47.30 Sleep apnea, unspecified; Z86.73 Personal history of transient ischemic attack (TIA), and cerebral infarction without residual deficits; Z79.899 Other long term (current) drug therapy; Z88.0 Allergy status to penicillin; Z88.1 Allergy status to other antibiotic agents; Z20.828 Contact with and (suspected) exposure to other viral communicable diseases
CPT/HCPCS: 36415; 71045; 74176; 76376; 80053; 81000; 83605; 83690; 85025; 85610; 87040; 87081; 87086; 87426; 93005; 96360; 99285; J7040

== ENCOUNTER 2020-07-21 05:53 | Emergency (ER) | payer BC ==
[~2020-07-21] VITALS: Ht 154.9 cm; Wt 52.2 kg
[2020-07-21 06:00] VITALS: BP_SYST 130
--- NOTE | 2020-07-21 06:00 | NUR ---
Placed in room 3 . Placed on automatic spinning lathe operator, blood pressure machine and pulse oximeter. To gown for exam. Side rails up. Report given to Darlin NUNEZ.
--- NOTE | 2020-07-21 06:35 | NUR ---
Pt presents to the ER c/o heavily breathing x 4 am as per . Pt had one episode of breathing heavily, pt able to speak full sentences and in no visible distress. Pt has allergy to pencillin, ciproflaxin. Denies current SOB, CP or sick contacts.
--- NOTE | 2020-07-21 06:35 | NUR ---
ER at bedside examining patient.
--- NOTE | 2020-07-21 06:50 | NUR ---
EKG GIVEN TO DR DODSON.
--- NOTE | 2020-07-21 07:18 | NUR ---
Report given to Dr Jackson for continuation of care
--- NOTE | 2020-07-21 07:40 | NUR ---
AUTOMATION AND CONTROLS INSTRUCTOR HAD JUST DRAWN BLOOD SAMPLE. PT COMFORTABLE AT THIS HOUR. SPOUSE SITTING AT BEDSIDE.
[2020-07-21 07:46] LABS: BASOPHILS # (AUTO) 0.1 K/uL (0.0-0.2); BASOPHILS % (AUTO) 1.8 % (0.0-2.0); EOSINOPHILS # (AUTO) 0.1 K/uL (0.0-0.4); EOSINOPHILS % (AUTO) 2.4 % (0.0-4.0); HEMATOCRIT 28.8 % (36-48); HEMOGLOBIN 9.9 g/dL (12.0-16.0); LYMPHOCYTES # (AUTO) 0.6 K/uL (1.0-5.5); LYMPHOCYTES % (AUTO) 18.5 % (20.5-51.5); MEAN CORPUSCULAR HEMOGLOBIN 34 pg (27-31); MEAN CORPUSCULAR HGB CONC 35 % (32-36); MEAN CORPUSCULAR VOLUME 98 fL (79.0-98.0); MONOCYTES # (AUTO) 0.3 K/uL (0.0-1.0); MONOCYTES % (AUTO) 10.6 % (1.7-9.3); NEUTROPHILS # (AUTO) 2.1 K/uL (1.8-7.7); NEUTROPHILS % (AUTO) 66.7 % (40.0-70.0); PLATELET COUNT (AUTO) 286 K/uL (130-430); RED BLOOD CELL COUNT(AUTO) 2.95 MIL/uL (4.2-6.2); RED CELL DISTRIBUTION WIDTH 12.6 % (9.0-15.0); WHITE BLOOD COUNT (AUTO) 3.1 K/uL (4.8-10.8)
[2020-07-21 08:12] LABS: ANION GAP 5 (5-15); CALCIUM 8.5 mg/dL (8.4-11.0); CHLORIDE 96 mmol/L (98-107); GLUCOSE 91 mg/dL (70-99); POTASSIUM 4.8 mmol/L (3.5-5.1); SODIUM SERUM 128 mmol/L (136-145); UREA NITROGEN, BLOOD 23 mg/dL (8-21)
[2020-07-21 08:18] LABS: ALANINE AMINOTRANSFERASE 31 U/L (12-78); ALBUMIN 3.3 g/dL (3.4-4.8); ASPARTATE AMINOTRANSFERASE 21 U/L (10-37); TOTAL BILIRUBIN 0.4 mg/dL (0.0-1.0)
--- NOTE | 2020-07-21 09:40 | NUR ---
Patient given written and verbal discharge instructions and verbalizes understanding. ER MD MILLRE discussed with patient the results and treatment provided. Patient in stable condition. ID arm band removed. Patient educated on pain management and to follow up with PMD. Pain Scale 0. Opportunity for questions provided and answered. Medication side effect fact sheet provided.
== END 2020-07-21 10:34 | disposition home or self-care (01) ==
LOC: SED 05:53
DX: R06.02 Shortness of breath (principal); J44.9 Chronic obstructive pulmonary disease, unspecified; I10 Essential (primary) hypertension; E11.9 Type 2 diabetes mellitus without complications; Z13.89 Encounter for screening for other disorder; Z79.899 Other long term (current) drug therapy; Z88.0 Allergy status to penicillin; Z88.1 Allergy status to other antibiotic agents; Z88.5 Allergy status to narcotic agent
CPT/HCPCS: 36415; 80053; 85025; 93005; 99284

== ENCOUNTER 2020-09-15 20:22 | Emergency (ER) | payer BC, SELFPAY ==
[~2020-09-15] VITALS: Ht 160 cm; Wt 50.8 kg
[~2020-09-15 20:22] MED LIST changes: -AMLO5TAB4 PO
[2020-09-15 20:35] VITALS: BP_SYST 133
[2020-09-15] MEDS ORDERED: LORazepam 2 MG/ML VIAL ONE (22:49)
[2020-09-15 23:30] VITALS: BP_SYST 120
== END 2020-09-15 23:30 | disposition home or self-care (01) ==
LOC: SED 20:22
DX: K63.89 Other specified diseases of intestine (principal); I10 Essential (primary) hypertension; E11.9 Type 2 diabetes mellitus without complications; J44.9 Chronic obstructive pulmonary disease, unspecified; G47.30 Sleep apnea, unspecified; Z86.73 Personal history of transient ischemic attack (TIA), and cerebral infarction without residual deficits; Z79.899 Other long term (current) drug therapy; Z88.0 Allergy status to penicillin; Z88.1 Allergy status to other antibiotic agents; Z88.6 Allergy status to analgesic agent
CPT/HCPCS: 70450; 70490; 76376; 99285; J2060

== ENCOUNTER 2020-11-28 09:48 | Emergency (ER) | payer BC, SELFPAY ==
[~2020-11-28] VITALS: Ht 154.9 cm; Wt 54.4 kg
[2020-11-28 09:53] VITALS: BP_SYST 104
[2020-11-28] MEDS ORDERED: OMEP-268 PO (10:05)
[2020-11-28] MEDS ORDERED: DOCU-144 PO (10:05)
[2020-11-28] MEDS ORDERED: ALBU8.5H8 INH (10:05)
[2020-11-28] MEDS ORDERED: ONDA4TAB5 PO (10:05)
[2020-11-28] MEDS ORDERED: VIT1CAPS25 PO (10:05)
[2020-11-28] MEDS ORDERED: VIT1TABL67 PO (10:05)
[2020-11-28] MEDS ORDERED: MIRT15TA7 PO (10:05)
[2020-11-28 10:41] LABS: EOSINOPHILS # (AUTO) 0.3 K/uL (0.0-0.4); EOSINOPHILS % (AUTO) 6.9 % (0.0-4.0); HEMATOCRIT 31.9 % (36-48); HEMOGLOBIN 10.6 g/dL (12.0-16.0); LYMPHOCYTES # (AUTO) 0.8 K/uL (1.0-5.5); LYMPHOCYTES % (AUTO) 20.3 % (20.5-51.5); MEAN CORPUSCULAR HEMOGLOBIN 31 pg (27-31); MEAN CORPUSCULAR HGB CONC 33 % (32-36); MEAN CORPUSCULAR VOLUME 93 fL (79.0-98.0); MONOCYTES # (AUTO) 0.5 K/uL (0.0-1.0); MONOCYTES % (AUTO) 12.4 % (1.7-9.3); NEUTROPHILS # (AUTO) 2.5 K/uL (1.8-7.7); NEUTROPHILS % (AUTO) 59.4 % (40.0-70.0); PLATELET COUNT (AUTO) 215 K/uL (130-430); RED BLOOD CELL COUNT(AUTO) 3.42 MIL/uL (4.2-6.2); RED CELL DISTRIBUTION WIDTH 13.4 % (9.0-15.0); WHITE BLOOD COUNT (AUTO) 4.2 K/uL (4.8-10.8)
[2020-11-28 10:53] LABS: ANION GAP 5 (5-15); CALCIUM 8.9 mg/dL (8.4-11.0); CHLORIDE 101 mmol/L (98-107); CREATININE 0.79 mg/dL (0.55-1.30); GLUCOSE 96 mg/dL (70-99); POTASSIUM 4.4 mmol/L (3.5-5.1); SODIUM SERUM 139 mmol/L (136-145); UREA NITROGEN, BLOOD 19 mg/dL (8-21)
[2020-11-28 11:07] LABS: BILIRUBIN,URINE NEGATIVE (NEGATIVE); BLOOD, URINE NEGATIVE (NEGATIVE); CLARITY/URINE CLEAR (CLEAR); COLOR,URINE YELLOW (YELLOW); GLUCOSE,URINE NEGATIVE (NEGATIVE); KETONES,URINE NEGATIVE (NEGATIVE); LEUKOCYTE ESTERASE ,URINE 2+ (NEGATIVE); NITRITE, URINE NEGATIVE (NEGATIVE); PH,URINE 6.5 (5.0-8.0); PROTEIN URINE NEGATIVE (NEGATIVE); UROBILINOGEN,URINE 0.2 (0.2-1.0)
[2020-11-28 11:08] LABS: ALANINE AMINOTRANSFERASE 35 U/L (12-78); ASPARTATE AMINOTRANSFERASE 24 U/L (10-37); THYROID STIMULATING HORMONE 1.36 uIu/mL (0.36-3.74); TOTAL BILIRUBIN 0.2 mg/dL (0.0-1.0)
[2020-11-28 11:09] LABS: ACETAMINOPHEN < 1 ug/mL (1-30); ALCOHOL, BLOOD < 3 mg/dL (<10)
[2020-11-28 11:26] LABS: BARBITURATE, URINE NEGATIVE (NEG <=200); BENZODIAZEPINE, URINE NEGATIVE (NEG <=150); CANNABINOID, URINE NEGATIVE (NEG <=50); COCAINE, URINE NEGATIVE (NEG <=150); METHAMPHETAMINES SCREEN,URINE NEGATIVE (NEG <=500); OPIATE, URINE NEGATIVE (NEG <=100); PHENCYCLIDINE SCREEN,URINE NEGATIVE (NEG <=25); UR TRICYCLIC ANTIDEPRESSANTS NEGATIVE (NEG <=300); URINE AMPHETAMINE NEGATIVE (NEG <=500); URINE METHADONE NEGATIVE (NEG <=200); URINE OXYCODONE SCREEN NEGATIVE (NEG <=100); URINE PROPOXYPHENE SCREEN NEGATIVE (NEG <=300)
[2020-11-28 11:33] LABS: BACTERIA,URINE None Seen /HPF (None Seen); RBC,URINE 0-3 /HPF (0-3)
[2020-11-28 11:34] LABS: CALCIUM PHOSPHATE CRYSTALS,UR None Seen /HPF (None Seen); TRICHOMONAS,URINE None Seen /HPF (None Seen); YEAST,URINE None Seen /HPF (None Seen)
[2020-11-28] MEDS ORDERED: SULF1TAB48 PO (11:46)
[2020-11-28 11:57] VITALS: BP_SYST 104
== END 2020-11-28 11:58 | disposition home or self-care (01) ==
LOC: SED 09:48
DX: N39.0 Urinary tract infection, site not specified (principal); J44.9 Chronic obstructive pulmonary disease, unspecified; I10 Essential (primary) hypertension; E11.9 Type 2 diabetes mellitus without complications; G47.30 Sleep apnea, unspecified; Z79.899 Other long term (current) drug therapy; Z88.0 Allergy status to penicillin; Z88.1 Allergy status to other antibiotic agents; Z88.6 Allergy status to analgesic agent; Z20.822 Contact with and (suspected) exposure to COVID-19
CPT/HCPCS: 36415; 80053; 80307; 81000; 84439; 84443; 85025; 87086; 87426; 93005; 99284; G0480; G0481; G0482

== ENCOUNTER 2020-12-03 11:47 | Inpatient (IN) | payer BC, SELFPAY ==
[~2020-12-03] VITALS: Ht 160 cm; Wt 54.0 kg
[2020-12-03 11:47] VITALS: BP_SYST 116
[~2020-12-03 11:47] MED LIST changes: +ALBU8.5H8 INH; +DOCU-144 PO; +MIRT15TA7 PO; +OMEP-268 PO; +SULF1TAB48 PO; +VIT1CAPS25 PO; +VIT1TABL67 PO
[2020-12-03 12:43] LABS: BASOPHILS % (AUTO) 0.8 % (0.0-2.0); EOSINOPHILS # (AUTO) 0.1 K/uL (0.0-0.4); EOSINOPHILS % (AUTO) 3.1 % (0.0-4.0); HEMATOCRIT 33.1 % (36-48); HEMOGLOBIN 11.3 g/dL (12.0-16.0); LYMPHOCYTES % (AUTO) 27.1 % (20.5-51.5); MEAN CORPUSCULAR HEMOGLOBIN 31 pg (27-31); MEAN CORPUSCULAR HGB CONC 34 % (32-36); MEAN CORPUSCULAR VOLUME 92 fL (79.0-98.0); MONOCYTES # (AUTO) 0.5 K/uL (0.0-1.0); MONOCYTES % (AUTO) 12.3 % (1.7-9.3); NEUTROPHILS # (AUTO) 2.1 K/uL (1.8-7.7); NEUTROPHILS % (AUTO) 56.7 % (40.0-70.0); PLATELET COUNT (AUTO) 245 K/uL (130-430); RED BLOOD CELL COUNT(AUTO) 3.61 MIL/uL (4.2-6.2); RED CELL DISTRIBUTION WIDTH 12.9 % (9.0-15.0); WHITE BLOOD COUNT (AUTO) 3.8 K/uL (4.8-10.8)
[2020-12-03 13:18] LABS: ANION GAP 3 (5-15); CHLORIDE 95 mmol/L (98-107); GLUCOSE 76 mg/dL (70-99); POTASSIUM 5.1 mmol/L (3.5-5.1); SODIUM SERUM 127 mmol/L (136-145)
[2020-12-03 13:19] LABS: ALANINE AMINOTRANSFERASE 36 U/L (12-78); ALBUMIN 3.4 g/dL (3.4-4.8); ASPARTATE AMINOTRANSFERASE 25 U/L (10-37); CREATININE 0.98 mg/dL (0.55-1.30); THYROID STIMULATING HORMONE 1.57 uIu/mL (0.36-3.74); TOTAL BILIRUBIN 0.3 mg/dL (0.0-1.0); UREA NITROGEN, BLOOD 17 mg/dL (8-21)
[2020-12-03] MEDS ORDERED: NACL 0.9% 1,000 ML IV ONE (14:00)
[2020-12-03] MEDS ORDERED: BENZ-16 PO (14:10)
[2020-12-03 15:38] VITALS: BP_SYST 133
[2020-12-03 15:41] VITALS: BP_SYST 133
[2020-12-03] MEDS ORDERED: DOCUSATE SODIUM 100 MG CAPSULE PO SCH (18:30)
[2020-12-03] MEDS ORDERED: ONDANSETRON 4 MG ODT TAB PO SCH (18:30)
[2020-12-03 19:40] VITALS: BP_SYST 113
[2020-12-03] MEDS: MIRTAZAPINE 15 MG TABLET PO SCH (20:52)
[2020-12-04 00:32] VITALS: BP_SYST 118
[2020-12-04 05:58] LABS: BASOPHILS % (AUTO) 1.1 % (0.0-2.0); EOSINOPHILS # (AUTO) 0.2 K/uL (0.0-0.4); HEMATOCRIT 32.2 % (36-48); LYMPHOCYTES # (AUTO) 1.2 K/uL (1.0-5.5); LYMPHOCYTES % (AUTO) 31.6 % (20.5-51.5); MEAN CORPUSCULAR HEMOGLOBIN 31 pg (27-31); MEAN CORPUSCULAR HGB CONC 34 % (32-36); MEAN CORPUSCULAR VOLUME 92 fL (79.0-98.0); MONOCYTES # (AUTO) 0.4 K/uL (0.0-1.0); MONOCYTES % (AUTO) 10.5 % (1.7-9.3); NEUTROPHILS % (AUTO) 52.8 % (40.0-70.0); PLATELET COUNT (AUTO) 238 K/uL (130-430); RED BLOOD CELL COUNT(AUTO) 3.51 MIL/uL (4.2-6.2); RED CELL DISTRIBUTION WIDTH 12.9 % (9.0-15.0); WHITE BLOOD COUNT (AUTO) 3.8 K/uL (4.8-10.8)
[2020-12-04 06:21] LABS: ALANINE AMINOTRANSFERASE 33 U/L (12-78); ALBUMIN 3.1 g/dL (3.4-4.8); ANION GAP 8 (5-15); ASPARTATE AMINOTRANSFERASE 22 U/L (10-37); CALCIUM 8.8 mg/dL (8.4-11.0); CHLORIDE 98 mmol/L (98-107); CREATININE 0.82 mg/dL (0.55-1.30); GLUCOSE 65 mg/dL (70-99); POTASSIUM 4.6 mmol/L (3.5-5.1); SODIUM SERUM 132 mmol/L (136-145); TOTAL BILIRUBIN 0.5 mg/dL (0.0-1.0); UREA NITROGEN, BLOOD 14 mg/dL (8-21)
[2020-12-04 08:00] VITALS: BP_SYST 117
[2020-12-04] MEDS: PANTOPRAZOLE SODIUM 40 MG TAB PO SCH (09:00)
[2020-12-04] MEDS ORDERED: DEXTROSE 50% JECT 50 ML DISP.SYRIN IVP ONE (09:30)
[2020-12-04 15:19] VITALS: BP_SYST 122
[2020-12-04 16:34] VITALS: BP_SYST 127
[2020-12-04] MEDS: MIRTAZAPINE 15 MG TABLET PO SCH (21:00)
[2020-12-05 00:41] VITALS: BP_SYST 124
[2020-12-05] MEDS ORDERED: LORazepam 2 MG/ML VIAL IVP ONE (03:30)
[2020-12-05 08:03] VITALS: BP_SYST 104
[2020-12-05] MEDS: PANTOPRAZOLE SODIUM 40 MG TAB PO SCH (09:00)
[2020-12-05] MEDS ORDERED: MEPERIDINE 100 MG INJ. 100 MG/ML VIAL ONE (11:16)
[2020-12-05] MEDS ORDERED: SIMETHICONE 40 MG/0.6 ML ML ONE (11:16)
[2020-12-05] MEDS: MIDAZOLAM HCL 5 MG/5 ML VIAL ONE ×2 (11:32→11:36)
[2020-12-05 12:00] VITALS: BP_SYST 119
[2020-12-05 16:00] VITALS: BP_SYST 117
[2020-12-05] MEDS ORDERED: LORazepam 2 MG/ML VIAL IVP SCH (17:00)
[2020-12-05 19:30] VITALS: BP_SYST 118
[2020-12-05 20:30] VITALS: BP_SYST 113
[2020-12-05] MEDS: MIRTAZAPINE 15 MG TABLET PO SCH (20:48)
== END 2020-12-05 23:10 | disposition home or self-care (01) | DRG 392 ==
LOC: SED 11:47 → SMU 13:50 → INTOOBSV 13:50 → SMU 15:16 → OBSVTOIN 12-04 15:06 → SMU 12-05 06:02
PROVIDERS: ADMIT Internal Medicine Hospice and Palliative Medicine; ATTEND Internal Medicine Hospice and Palliative Medicine
PROC: 0DB68ZX Excision of Stomach, Via Natural or Artificial Opening Endoscopic, Diagnostic (ICD-10-PCS; principal; 2020-12-05 11:30)
DX: K29.70 Gastritis, unspecified, without bleeding (principal); E87.1 Hypo-osmolality and hyponatremia; K56.7 Ileus, unspecified; Z98.891 History of uterine scar from previous surgery; R13.10 Dysphagia, unspecified; I10 Essential (primary) hypertension; E11.9 Type 2 diabetes mellitus without complications; I25.10 Atherosclerotic heart disease of native coronary artery without angina pectoris; J45.909 Unspecified asthma, uncomplicated; K29.80 Duodenitis without bleeding; K44.9 Diaphragmatic hernia without obstruction or gangrene; F32.9 Major depressive disorder, single episode, unspecified; G93.0 Cerebral cysts; F41.9 Anxiety disorder, unspecified; G47.30 Sleep apnea, unspecified; Z20.822 Contact with and (suspected) exposure to COVID-19; Z80.41 Family history of malignant neoplasm of ovary; Z88.1 Allergy status to other antibiotic agents; Z88.0 Allergy status to penicillin; Z88.8 Allergy status to other drugs, medicaments and biological substances; Z79.899 Other long term (current) drug therapy
CPT/HCPCS: 36415; 70450-TC; 74018; 76376; 80053; 82962; 84443-TC; 85025; 87081; 88305; 88312; 88313; 92610-GN; G0378; J2060; J2175; J2250; J7030

== ENCOUNTER 2020-12-20 20:10 | Emergency (ER) | payer BC, SELFPAY ==
[~2020-12-20] VITALS: Ht 160 cm; Wt 56.7 kg
[~2020-12-20 20:10] MED LIST changes: +BENZ-16 PO; -BISM262T15 PO; -CALC117719 PO; -CYAN250014 PO; -SULF1TAB48 PO
[2020-12-20 20:30] VITALS: BP_SYST 122
[2020-12-20 20:54] LABS: BASOPHILS % (AUTO) 0.7 % (0.0-2.0); EOSINOPHILS # (AUTO) 0.2 K/uL (0.0-0.4); EOSINOPHILS % (AUTO) 3.6 % (0.0-4.0); HEMOGLOBIN 11.4 g/dL (12.0-16.0); LYMPHOCYTES # (AUTO) 1.4 K/uL (1.0-5.5); LYMPHOCYTES % (AUTO) 28.6 % (20.5-51.5); MEAN CORPUSCULAR HEMOGLOBIN 31 pg (27-31); MEAN CORPUSCULAR HGB CONC 34 % (32-36); MEAN CORPUSCULAR VOLUME 92 fL (79.0-98.0); MONOCYTES # (AUTO) 0.5 K/uL (0.0-1.0); MONOCYTES % (AUTO) 9.1 % (1.7-9.3); NEUTROPHILS # (AUTO) 2.9 K/uL (1.8-7.7); PLATELET COUNT (AUTO) 207 K/uL (130-430); RED BLOOD CELL COUNT(AUTO) 3.71 MIL/uL (4.2-6.2); RED CELL DISTRIBUTION WIDTH 12.9 % (9.0-15.0)
[2020-12-20 21:03] LABS: ANION GAP 6 (5-15); CALCIUM 8.9 mg/dL (8.4-11.0); CHLORIDE 100 mmol/L (98-107); CREATININE 0.81 mg/dL (0.55-1.30); GLUCOSE 82 mg/dL (70-99); POTASSIUM 4.2 mmol/L (3.5-5.1); SODIUM SERUM 135 mmol/L (136-145); UREA NITROGEN, BLOOD 21 mg/dL (8-21)
[2020-12-20 21:06] LABS: PROTHROMBIN TIME 9.9 SECS (9.5-12.5)
[2020-12-20 21:09] LABS: ALANINE AMINOTRANSFERASE 45 U/L (12-78); ALBUMIN 3.2 g/dL (3.4-4.8); AMYLASE 139 U/L (0-100); ASPARTATE AMINOTRANSFERASE 33 U/L (10-37); LIPASE 733 U/L (73-393); TOTAL BILIRUBIN 0.3 mg/dL (0.0-1.0)
[2020-12-20 21:23] LABS: BILIRUBIN,URINE NEGATIVE (NEGATIVE); BLOOD, URINE 2+ (NEGATIVE); CLARITY/URINE SL CLOUDY (CLEAR); COLOR,URINE YELLOW (YELLOW); GLUCOSE,URINE NEGATIVE (NEGATIVE); KETONES,URINE NEGATIVE (NEGATIVE); LEUKOCYTE ESTERASE ,URINE 3+ (NEGATIVE); NITRITE, URINE NEGATIVE (NEGATIVE); PROTEIN URINE NEGATIVE (NEGATIVE); UROBILINOGEN,URINE 0.2 (0.2-1.0)
[2020-12-20 21:32] LABS: ACETONE, SERUM NEGATIVE (NEGATIVE)
[2020-12-20 21:45] LABS: BACTERIA,URINE MANY /HPF (None Seen); MUCUS,URINE 1+ /LPF (None Seen); WBC,URINE >100 /HPF (0-3)
[2020-12-20] MEDS ORDERED: FLEETMO RC (22:01)
[2020-12-20] MEDS ORDERED: MAGN296S30 PO (22:01)
[2020-12-20 22:32] VITALS: BP_SYST 155
== END 2020-12-20 22:33 | disposition home or self-care (01) ==
LOC: SED 20:10
DX: K59.00 Constipation, unspecified (principal); R53.1 Weakness; I10 Essential (primary) hypertension; E11.9 Type 2 diabetes mellitus without complications; J44.9 Chronic obstructive pulmonary disease, unspecified; G47.30 Sleep apnea, unspecified; Z79.899 Other long term (current) drug therapy; Z88.0 Allergy status to penicillin; Z88.1 Allergy status to other antibiotic agents; Z88.6 Allergy status to analgesic agent
CPT/HCPCS: 36415; 76376; 80053; 81000; 82009; 82150; 83605; 83690; 85025; 85610-TC; 85730-TC; 87086; 99284

== ENCOUNTER 2021-12-24 03:44 | Emergency (ER) | payer BC ==
[~2021-12-24] VITALS: Ht 154.9 cm; Wt 93.4 kg
[~2021-12-24 03:44] MED LIST changes: +FLEETMO RC; +LEVO500T90 PO; +MAGN296S8 PO; +MIRT-91 PO; -MIRT15TA7 PO
[2021-12-24 04:07] VITALS: BP_SYST 114
[2021-12-24] MEDS ORDERED: FAMOTIDINE PF 20 MG/2 ML VIAL IVP ONE (04:30)
[2021-12-24] MEDS ORDERED: ONDANSETRON HCL 4 MG/2 ML VIAL IVP ONE (04:30)
[2021-12-24 05:01] LABS: BASOPHILS % (AUTO) 0.5 % (0.0-2.0); EOSINOPHILS # (AUTO) 0.3 K/uL (0.0-0.4); HEMATOCRIT 37.8 % (36-48); HEMOGLOBIN 12.5 g/dL (12.0-16.0); LYMPHOCYTES # (AUTO) 1.2 K/uL (1.0-5.5); MEAN CORPUSCULAR HEMOGLOBIN 29 pg (27-31); MEAN CORPUSCULAR HGB CONC 33 % (32-36); MEAN CORPUSCULAR VOLUME 88 fL (79.0-98.0); MONOCYTES # (AUTO) 0.7 K/uL (0.0-1.0); NEUTROPHILS # (AUTO) 6.8 K/uL (1.8-7.7); NEUTROPHILS % (AUTO) 75.5 % (40.0-70.0); PLATELET COUNT (AUTO) 191 K/uL (130-430); RED BLOOD CELL COUNT(AUTO) 4.27 MIL/uL (4.2-6.2); RED CELL DISTRIBUTION WIDTH 13.8 % (9.0-15.0)
[2021-12-24 05:12] LABS: ANION GAP 8 (5-15); CALCIUM 8.3 mg/dL (8.4-11.0); CHLORIDE 106 mmol/L (98-107); GLUCOSE 133 mg/dL (70-99); POTASSIUM 4.6 mmol/L (3.5-5.1); SODIUM SERUM 139 mmol/L (136-145); UREA NITROGEN, BLOOD 34 mg/dL (8-21)
[2021-12-24 05:16] LABS: ALANINE AMINOTRANSFERASE 46 U/L (12-78); ASPARTATE AMINOTRANSFERASE 39 U/L (10-37); LIPASE 473 U/L (73-393); TOTAL BILIRUBIN 0.3 mg/dL (0.0-1.0)
[2021-12-24] MEDS ORDERED: NS 250 ML IV ONE (07:30)
[2021-12-24 09:32] LABS: BILIRUBIN,URINE NEGATIVE (NEGATIVE); BLOOD, URINE NEGATIVE (NEGATIVE); CLARITY/URINE CLEAR (CLEAR); COLOR,URINE YELLOW (YELLOW); GLUCOSE,URINE NEGATIVE (NEGATIVE); KETONES,URINE NEGATIVE (NEGATIVE); LEUKOCYTE ESTERASE ,URINE NEGATIVE (NEGATIVE); NITRITE, URINE POSITIVE (NEGATIVE); PROTEIN URINE NEGATIVE (NEGATIVE); UROBILINOGEN,URINE 0.2 (0.2-1.0)
[2021-12-24 09:49] LABS: BACTERIA,URINE MANY /HPF (None Seen); RBC,URINE 0-3 /HPF (0-3); WBC,URINE 0-3 /HPF (0-3)
[2021-12-24] MEDS ORDERED: DOXY100C5 PO (10:08)
[2021-12-24 10:35] VITALS: BP_SYST 118
== END 2021-12-24 10:36 | disposition home or self-care (01) ==
LOC: SED 03:44
DX: R10.13 Epigastric pain (principal); J45.909 Unspecified asthma, uncomplicated; E11.9 Type 2 diabetes mellitus without complications; I10 Essential (primary) hypertension; Z88.0 Allergy status to penicillin; Z88.1 Allergy status to other antibiotic agents
CPT/HCPCS: 36415; 74021; 74177; 76376; 80053; 81000; 83690; 85025; 87086; 96374; 96375; 99285; J2405; J3490; Q9967

== ENCOUNTER 2022-03-21 21:55 | Emergency (ER) | payer BC ==
[~2022-03-21] VITALS: Ht 154.9 cm; Wt 100.7 kg
[~2022-03-21 21:55] MED LIST changes: +DOXY100C5 PO
[2022-03-21 22:29] VITALS: BP_SYST 137
--- NOTE | 2022-03-21 22:33 | NUR ---
PER , PATIENT HAS HAD A COUGH FOR A DAY WITH NO OTHER SYMPTOMS BUT PATIENTS WANTED HER SEEN BEFORE HE LEAVES FOR WORK. NO COMPLAINTS FROM PATIENT.
--- NOTE | 2022-03-21 23:55 | NUR ---
BIB VIA W/C WITH TRIAGE NURSE. / GEOGRAPHIC AREA INTELLIGENCE OFFICER AT BEDSIDE. C/O COUGH X1 DAY. NO OBERVED COUGH OR DYSPNES PRESENT.
[2022-03-22 01:46] LABS: ANION GAP 9 (5-15); CALCIUM 8.5 mg/dL (8.4-11.0); CHLORIDE 104 mmol/L (98-107); GLUCOSE 118 mg/dL (70-99); POTASSIUM 5.1 mmol/L (3.5-5.1); SODIUM SERUM 142 mmol/L (136-145); UREA NITROGEN, BLOOD 26 mg/dL (8-21)
[2022-03-22 01:51] LABS: BASOPHILS # (AUTO) 0.1 K/uL (0.0-0.2); BASOPHILS % (AUTO) 0.9 % (0.0-2.0); EOSINOPHILS # (AUTO) 0.3 K/uL (0.0-0.4); EOSINOPHILS % (AUTO) 4.4 % (0.0-4.0); HEMATOCRIT 36.9 % (36-48); HEMOGLOBIN 12.6 g/dL (12.0-16.0); LYMPHOCYTES # (AUTO) 1.2 K/uL (1.0-5.5); MEAN CORPUSCULAR HEMOGLOBIN 30 pg (27-31); MEAN CORPUSCULAR HGB CONC 34 % (32-36); MEAN CORPUSCULAR VOLUME 89 fL (79.0-98.0); MONOCYTES # (AUTO) 0.6 K/uL (0.0-1.0); NEUTROPHILS # (AUTO) 4.3 K/uL (1.8-7.7); NEUTROPHILS % (AUTO) 66.7 % (40.0-70.0); PLATELET COUNT (AUTO) 214 K/uL (130-430); RED BLOOD CELL COUNT(AUTO) 4.17 MIL/uL (4.2-6.2); RED CELL DISTRIBUTION WIDTH 14.4 % (9.0-15.0); WHITE BLOOD COUNT (AUTO) 6.5 K/uL (4.8-10.8)
[2022-03-22 02:03] LABS: ALANINE AMINOTRANSFERASE 30 U/L (12-78); ALBUMIN 2.9 g/dL (3.4-4.8); ASPARTATE AMINOTRANSFERASE 33 U/L (10-37); TOTAL BILIRUBIN 0.5 mg/dL (0.0-1.0)
[2022-03-22] MEDS ORDERED: PRED20TA PO (03:52)
[2022-03-22] MEDS ORDERED: ALBU2.5V7 INH (03:52)
[2022-03-22] MEDS ORDERED: predniSONE 20 MG TABLET PO ONE (04:00)
[2022-03-22 04:21] VITALS: BP_SYST 128
--- NOTE | 2022-03-22 04:22 | NUR ---
PT STABLE FOR D/C TO HOME WITH . VERBALIZES UNDERSTANDING OF AFTERCARE INSTRUCTIONS. TO CAR VIA W/C WITH ALL PAPERWORK/ BELONGNGS IN HAND
== END 2022-03-22 04:15 | disposition home or self-care (01) ==
LOC: SED 21:55
DX: J02.9 Acute pharyngitis, unspecified (principal); R05.9 Cough, unspecified; J45.909 Unspecified asthma, uncomplicated; E11.9 Type 2 diabetes mellitus without complications; I10 Essential (primary) hypertension; Z88.0 Allergy status to penicillin; Z88.1 Allergy status to other antibiotic agents; Z88.6 Allergy status to analgesic agent; Z79.899 Other long term (current) drug therapy; Z20.822 Contact with and (suspected) exposure to COVID-19
CPT/HCPCS: 99284; 87426; 80053; 85025; 87040; 84484; 36415; 83605; 87804 ×2; 71045; J7512

== ENCOUNTER 2023-04-10 22:27 | Emergency (ER) | payer BC ==
[~2023-04-10] VITALS: Ht 157.5 cm; Wt 127.0 kg
[~2023-04-10 22:27] MED LIST changes: +ALBU2.5V7 INH; +LEVO-62 PO; -LEVO500T90 PO; +PRED20TA PO
[2023-04-10 22:51] VITALS: BP_SYST 118; PULSE 100; RESP 18; TEMP 98.4; O2SAT 97
[2023-04-10 23:31] LABS: BILIRUBIN,URINE 1+ (NEGATIVE); BLOOD, URINE NEGATIVE (NEGATIVE); COLOR,URINE YELLOW (YELLOW); GLUCOSE,URINE NEGATIVE (NEGATIVE); KETONES,URINE TRACE (NEGATIVE); LEUKOCYTE ESTERASE ,URINE 1+ (NEGATIVE); NITRITE, URINE NEGATIVE (NEGATIVE); PH,URINE 5.5 (5.0-8.0); PROTEIN URINE NEGATIVE (NEGATIVE)
[2023-04-10 23:33] LABS: CLARITY/URINE SLIGHTLY CLOUDY (CLEAR)
[2023-04-10 23:38] LABS: BACTERIA,URINE MODERATE /HPF (None Seen); RBC,URINE 0-3 /HPF (0-3); WBC,URINE 80-100 /HPF (0-3)
[2023-04-11] MEDS ORDERED: NACL 0.9% 1,000 ML IV ONE (00:30)
[2023-04-11] MEDS ORDERED: cefTRIAXone 1 GM IVPB PREMIX 50 ML IV ONE (00:30)
[2023-04-11 01:21] LABS: BASOPHILS # (AUTO) 0.1 K/uL (0.0-0.2); BASOPHILS % (AUTO) 0.7 % (0.0-2.0); EOSINOPHILS # (AUTO) 0.3 K/uL (0.0-0.4); EOSINOPHILS % (AUTO) 3.2 % (0.0-4.0); HEMATOCRIT 38.4 % (36-48); HEMOGLOBIN 12.8 g/dL (12.0-16.0); LYMPHOCYTES # (AUTO) 1.6 K/uL (1.0-5.5); LYMPHOCYTES % (AUTO) 16.6 % (20.5-51.5); MEAN CORPUSCULAR HEMOGLOBIN 30 pg (27-31); MEAN CORPUSCULAR HGB CONC 33 % (32-36); MEAN CORPUSCULAR VOLUME 91 fL (79.0-98.0); MONOCYTES # (AUTO) 0.8 K/uL (0.0-1.0); MONOCYTES % (AUTO) 7.9 % (1.7-9.3); NEUTROPHILS # (AUTO) 6.9 K/uL (1.8-7.7); NEUTROPHILS % (AUTO) 71.6 % (40.0-70.0); PLATELET COUNT (AUTO) 215 K/uL (130-430); RED BLOOD CELL COUNT(AUTO) 4.21 MIL/uL (4.2-6.2); RED CELL DISTRIBUTION WIDTH 15.4 % (9.0-15.0); WHITE BLOOD COUNT (AUTO) 9.6 K/uL (4.8-10.8)
[2023-04-11 01:31] LABS: ALANINE AMINOTRANSFERASE 24 U/L (12-78); ALBUMIN 2.8 g/dL (3.4-4.8); ANION GAP 6 (5-15); ASPARTATE AMINOTRANSFERASE 32 U/L (10-37); CALCIUM 8.5 mg/dL (8.4-11.0); CARBON DIOXIDE 27 mmol/L (23-29); CHLORIDE 104 mmol/L (98-107); CREATININE 1.41 mg/dL (0.55-1.30); GLUCOSE 141 mg/dL (74-106); POTASSIUM 4.2 mmol/L (3.5-5.1); SODIUM SERUM 137 mmol/L (136-145); TOTAL BILIRUBIN 0.5 mg/dL (0.0-1.0); TOTAL PROTEIN, SERUM 6.7 g/dL (6.4-8.3); UREA NITROGEN, BLOOD 27 mg/dL (8-21)
[2023-04-11] MEDS ORDERED: CEPH-548 PO (03:29)
[2023-04-11] MEDS ORDERED: CEPH250S PO (03:42)
[2023-04-11 04:07] VITALS: BP_SYST 130; PULSE 90; RESP 18; TEMP 98.2; O2SAT 97
== END 2023-04-11 04:07 | disposition home or self-care (01) ==
LOC: SED 22:27
DX: N39.0 Urinary tract infection, site not specified (principal); R53.1 Weakness; Z88.0 Allergy status to penicillin; Z88.1 Allergy status to other antibiotic agents; Z88.5 Allergy status to narcotic agent; Z79.899 Other long term (current) drug therapy
CPT/HCPCS: 99284; 80053; 81000; 85025; 87040; 87086; 36415; 83605; 96365; 71045; J0696; J7030